=== PATIENT | female | born 1960 | race American Indian/Alaskan Native ===

== ENCOUNTER 2017-01-24 08:42 | Outpatient (CLI) | payer MEDICARE, OTHER ==
--- NOTE | 2017-01-25 08:07 | Cat Scan Report ---
CT ABDOMEN AND PELVIS WITHOUT CONTRAST: 01/24/17 08:42:00 CLINICAL:Abdominal pain. Incisional hernia. TECHNIQUE: Volumetric acquisition and 1.25 millimeter scan reconstructions from the lung bases through the iliac crest. The study was performed with oral contrast. FINDINGS: Abdomen:Clear lung bases. Normal liver, bile ducts and gallbladder. Normal stomach, duodenum, pancreas and spleen. Normal adrenal glands. Small kidneys with nondilated renal collecting systems and ureters. Bilateral renal parenchyma thinning. The right kidney measures 9.3 cm in length and the left kidney measures 9.0 cm in length. Moderate calcification of the abdominal vasculature including the renal vasculature. A left lower quadrant peritoneal dialysis catheter with a loculated collection of fluid in the abdominal wall at the catheter. The fluid collection measures 9.3 x 7.9 x 3.3 cm. There is a very small fat containing umbilical hernia. No other hernia is identified. The small bowel is normal. Mild diverticulosis of the ascending, transverse and descending colon and moderate diverticulosis of the sigmoid colon. No diverticulitis. The appendix is normal. Mild dialysate fluid in the upper abdomen. Pelvis: The urinary bladder a small with a relatively thick wall. A fibroid uterus measures 9.9 x 5.1 x 8.0 cm. A right uterine body submucosal fibroid measures 4.0 x 3.0 cm. Ovaries are normal. Moderate dialysate with in the pelvis. Bone windows demonstrate no suspicious bone lesion. IMPRESSION: 1. A very small fat containing umbilical hernia and no other hernia identified. 2. Diverticulosis but no diverticulitis. 3. Uterine leiomyomata. 4. Dialysate fluid in the left lower quadrant anterior abdominal wall. 5. No incisional hernia identified.
== END 2017-01-24 08:43 | disposition home or self-care (01) ==
LOC: SPVIMAG 08:42
PROVIDERS: ATTEND Surgery
DX: K43.2 Incisional hernia without obstruction or gangrene (principal); K42.9 Umbilical hernia without obstruction or gangrene; K57.30 Diverticulosis of large intestine without perforation or abscess without bleeding; D25.0 Submucous leiomyoma of uterus; I70.0 Atherosclerosis of aorta
CPT/HCPCS: 74176

== ENCOUNTER 2017-11-11 17:53 | Emergency (ER) | payer OTHER, MEDICARE ==
[2017-11-11] MEDS ORDERED: NORMODYNE IV ONE (18:04)
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
[2017-11-11] MEDS ORDERED: APRESOLINE IV ONE ×2 (18:25→20:48)
[2017-11-11 18:36] LABS: Basophils # (Auto) 0.1 K/mm3 (0.0-0.1); Basophils % (Auto) 1.4 % (0.0-1.8); Eosinophils # (Auto) 0.1 K/mm3 (0.0-0.4); Eosinophils % (Auto) 0.9 % (0.0-4.3); Hematocrit 38.9 % (30.3-42.9); Hemoglobin 12.5 gm/dl (10.1-14.3); Lymphocytes # (Auto) 1.1 K/mm3 (1.2-5.4); Lymphocytes % (Auto) 13.1 % (13.4-35.0); Mean Corpuscular HGB Conc 32 % (30-34); Mean Corpuscular Hemoglobin 29 pg (28-32); Mean Corpuscular Volume 88 fl (79-97); Monocytes # (Auto) 0.5 K/mm3 (0.0-0.8); Monocytes % (Auto) 5.9 % (0.0-7.3); Platelet Count 293 K/mm3 (140-440); Red Cell Distribution Width 18.4 % (13.2-15.2)
[2017-11-11 18:44] LABS: INR 1.12 (0.87-1.13)
[2017-11-11 18:45] LABS: Partial Thromboplastin Time 42.2 Sec. (24.2-36.6)
--- NOTE | 2017-11-11 18:51 | Cat Scan Report ---
FINAL REPORT EXAM: CT HEAD/BRAIN WO CON HISTORY: Altered Mental Status TECHNIQUE: Standard unenhanced CT of the head at 5.0 millimeter axial increments. PRIORS: None. FINDINGS: The ventricular system is normal in size and configuration. There is no evidence for parenchymal volume loss. There is no evidence for mass lesion, mass effect, midline shift, acute intracranial hemorrhage, or acute ischemia/ infarction. No evidence for acute skull fracture is seen. No abnormality in the overlying scalp soft tissues is seen. Visualized paranasal sinuses are clear. IMPRESSION: Negative CT of the head. No acute intracranial process noted.
--- NOTE | 2017-11-11 18:52 | XRay Report ---
FINAL REPORT EXAM: XR CHEST 1V AP HISTORY: wheezes TECHNIQUE: AP portable view of the chest PRIORS: None. FINDINGS: Lines, tubes, and devices: N/A Lungs and pleura: Trachea is normal in position. Lungs are clear of infiltrate, pleural effusion, vascular congestion, or pneumothorax. Cardiomediastinal silhouette: Cardiac and mediastinal silhouettes are unremarkable. Other: Bony structures are intact. IMPRESSION: No acute cardiopulmonary process seen.
[2017-11-11 19:01] LABS: Albumin 3.6 g/dL (3.9-5); Calcium 8.8 mg/dL (8.4-10.2)
[2017-11-11 19:30] LABS: Bacteria,Urine 1+ /HPF (Negative); Bilirubin,Urine NEG (Negative); Blood,Urine MOD (Negative); Color,Urine Yellow (Yellow); Mucus,Urine FEW /HPF; Urobilinogen,Urine < 2.0 mg/dL (<2.0)
[2017-11-11 19:33] LABS: Amphetamine Screen,Urine PRESUMPTIVE NEGATIVE; Benzodiazepines Screen,Urine PRESUMPTIVE NEGATIVE; Cannabinoid Screen,Urine PRESUMPTIVE NEGATIVE; Cocaine Screen,Urine PRESUMPTIVE NEGATIVE; Methadone Screen,Urine PRESUMPTIVE NEGATIVE; Opiate Screen,Urine PRESUMPTIVE NEGATIVE
[2017-11-11 20:04] LABS: Chol/HDL Ratio 2.63 %
[2017-11-11] MEDS ORDERED: APRESOLINE ONE (20:44)
[2017-11-11] MEDS ORDERED: ZOFRAN ONE (21:14)
[2017-11-11] MEDS ORDERED: ZOFRAN IV ONE (21:21)
[2017-11-11 22:21] VITALS: BP 147/81
== END 2017-11-11 22:30 | disposition left against medical advice (07) ==
LOC: ED 17:53
DX: E11.649 Type 2 diabetes mellitus with hypoglycemia without coma (principal); I10 Essential (primary) hypertension; R79.89 Other specified abnormal findings of blood chemistry; I25.10 Atherosclerotic heart disease of native coronary artery without angina pectoris; Z95.818 Presence of other cardiac implants and grafts; Z79.899 Other long term (current) drug therapy
CPT/HCPCS: 36415; 70450; 71045; 80053; 80061; 80307; 81001; 82140; 82962; 84484; 85025; 85610; 85730; 87086; 93005; 93010; 96374; 96375; 96376; 99285; G0480; J0360; J2405; 80320

== ENCOUNTER 2019-07-06 16:46 | Inpatient (IN) | payer MEDICARE, OTHER ==
[2019-07-06 19:03] LABS: Basophils # (Auto) 0.1 K/mm3 (0.0-0.1); Basophils % (Auto) 0.8 % (0.0-1.8); Hematocrit 22.2 % (30.3-42.9); Hemoglobin 6.9 gm/dl (10.1-14.3); Lymphocytes # (Auto) 1.5 K/mm3 (1.2-5.4); Mean Corpuscular HGB Conc 31 % (30-34); Mean Corpuscular Volume 80 fl (79-97); Monocytes % (Auto) 10.1 % (0.0-7.3); Platelet Count 281 K/mm3 (140-440); Red Blood Count 2.78 M/mm3 (3.65-5.03)
[2019-07-06 19:05] LABS: Red Cell Distribution Width 20.6 % (13.2-15.2)
[2019-07-06] MEDS ORDERED: DEXTROSE 50% IN WATER (25GM) 50 ML SYRINGE IV ONE (19:05)
--- NOTE | 2019-07-06 19:11 | Emergency Department Report ---
ED General Adult HPI - General Chief complaint: Medical Clearance Stated complaint: AMS Time Seen by Provider: 07/06/19 18:21 Source: EMS Mode of arrival: Stretcher Limitations: Altered Mental Status - History of Present Illness Initial comments: Patient is a 59-year-old female with past medical history of diabetes hypertension and is stage renal disease who is currently on hemodialysis who is presenting with altered mental status. Patient is a resident of [facility] and paramedics were called because the patient seemed altered after dialysis. Paramedics arrived patient blood pressure was 78/34. Patient was unable to give any additional history at that time. During my assessment the patient is alert to her name but when asked where she is and what year it is the patient responded "I don't have any clothes on". Patient is dressed at this time. We've called [facility] and the attendant states that the patient is is normally alert and oriented 3. It is unknown whether the patient has had a fever nausea vomiting diarrhea or cough cold or congestion. Severity scale (0 -10): 0 - Related Data Allergies Allergy/AdvReac Type Severity Reaction Status Date / Time No Known Allergies Allergy Verified 11/11/17 20:46 ED Review of Systems ROS: Stated complaint: AMS Other details as noted in HPI Comment: Unobtainable due to pts medical conditions ED Past Medical Hx - Past Medical History Hx Hypertension: Yes Hx Diabetes: Yes Additional medical history: peritoneal dialysis, CAD - Surgical History Hx Coronary Stent: Yes - Social History Smoking Status: Unknown if ever smoked ED Physical Exam - General Limitations: Altered Mental Status General appearance: alert, in no apparent distress, other (patient is following commands however she does answer questions very oddly and gets off topic very easily) - Head Head exam: Present: atraumatic, normocephalic - Eye Eye exam: Present: normal appearance, PERRL, EOMI - ENT ENT exam: Present: mucous membranes moist - Neck Neck exam: Present: normal inspection - Respiratory Respiratory exam: Present: normal lung sounds bilaterally. Absent: respiratory distress, wheezes, rales, rhonchi - Cardiovascular Cardiovascular Exam: Present: regular rate, normal rhythm, normal heart sounds. Absent: systolic murmur, diastolic murmur, rubs, gallop - GI/Abdominal GI/Abdominal exam: Present: soft, normal bowel sounds. Absent: distended, tenderness, guarding, rebound - Extremities Exam Extremities exam: Present: normal inspection - Back Exam Back exam: Present: normal inspection - Neurological Exam Neurological exam: Present: alert, altered, CN II-XII intact. Absent: motor sensory deficit - Psychiatric Psychiatric exam: Present: normal affect, normal mood - Skin Skin exam: Present: warm, dry, intact, normal color. Absent: rash ED Course Vital Signs 07/06/19 07/06/19 18:12 18:13 Temperature 98.8 F Pulse Rate 70 Respiratory 19 19 Rate Blood Pressure 125/43 [Left] O2 Sat by Pulse 97 97 Oximetry - Reevaluation(s) Reevaluation #1: 07/06/19 19:11 Patient's glucose was 61. At this time the patient will be given an amp of D50 and the patient will be reassessed to see if this improves her mental status. Patient's blood pressure at the time of my assessment is within normal limits Reevaluation #2: 07/06/19 21:19 I spoke with the patient's and he states that he's only seen her in this state of confusion when she has a low blood sugar. Patient original Accu-Chek was 61 and she was given D50 as had no improvement of her systemic symptoms. Patient's states that this is very outside of her baseline. Code stroke has been initiated at this time. CT head will be obtained. 07/06/19 23:59 CT head/brain wo con INDICATION: Stroke symptoms. Difficulty speaking. TECHNIQUE: Routine CT head without contrast. All CT scans at this location are performed using CT dose reduction for ALARA by means of automated exposure control. COMPARISON: None. FINDINGS: BRAIN / INTRACRANIAL CONTENTS: No acute hemorrhage, mass effect, midline shift, or hydrocephalus. No appreciable acute large territorial or lacunar infarct. No chronic infarct or focal atrophy. Normal brain volume and ventricular/sulcal size for age. ORBITS: No significant abnormality of visualized orbits. SINUSES / MASTOIDS: No significant abnormality of visualized sinuses and mastoid air cells. ADDITIONAL FINDINGS: None. IMPRESSION: 1. No acute findings. No appreciable acute infarct. Findings discussed with Dr. Granado at 8:40 PM central time on 07/06/2019. Reevaluation #3: 07/06/19 23:59 CT of the head was within normal limits. Telemetry neurology stated that they did not recommend TPA at this time please see his note. Patient will undergo a CT angiogram of the head and neck. CTA neck without and with intravenous contrast material CLINICAL HISTORY: Altered mental status. Dialysis patient experienced aphasia following dialysis episode. TECHNIQUE: Following acquisition of a timing bolus 0.625 mm thick contiguous axial scans were obtained from aortic arch to the skull base during rapid bolus intravenous contrast infusion. In addition to evaluation of axial source images multiplanar reconstructions were produced and reviewed for this report. Three-dimensional reconstructions were produced utilizing an independent workstation. These were also reviewed for this report. Contrast dose report: Omnipaque 350: 100 mL administered intravenously. FINDINGS: The origin of the brachiocephalic artery was excluded from this study. Origins of the common carotid artery and left subclavian artery are remarkable for the presence of calcified atherosclerotic plaque with no indication of associated stenosis. Right carotid artery: Right common carotid artery has an unremarkable appearance. Evaluation of the carotid bifurcations remarkable for the presence of calcified atherosclerotic plaque but there is no indication of hemodynamically significant stenosis. Cervical portions of the R ICA have a normal appearance. Left carotid artery: No abnormalities are seen along the course of the left common carotid artery. Evaluation of the carotid bifurcation is remarkable for calcified atherosclerotic plaque without evidence of stenosis. Cervical portions of the LICA have an unremarkable appearance. Balanced vertebral arteries are noted. Both vertebral arteries contribute to the basilar artery origin. There is no indication of hemodynamically significant stenosis along the course the vertebral arteries. . The degree of stenosis, if any, is determined utilizing NASCET like criteria. In this case there is no indication of hemodynamically significant stenosis at the carotid bifurcations or elsewhere. Evaluation the visualized portions of the thorax is remarkable for the presence of large bilateral pleural effusions. Correlation with chest radiograph is suggested. A right subclavian multilumen catheter is noted. The catheter tip is not included on this examination. There is no indication of cervical lymphadenopathy. No abnormalities are seen along the course of the airway. Visualized portions of the parotid glands and the submandibular salivary glands have a normal appearance. Thyroid gland has a normal appearance. Evaluation of the cervical spine is remarkable for exam) bridging anterior ost eophyte formation resulting in fusion of the cervical spine from C2 through C7 inclusive. IMPRESSION: 1. Large bilateral pleural effusions. Correlation with chest radiograph is suggested. 2. No indication of hemodynamically significant stenosis at the carotid bifurcations or elsewhere. CTA head with intravenous contrast CLINICAL HISTORY: altered mental status difficulty speaking following renal dialysis. TECHNIQUE: 0.625 mm thick contiguous axial scans were obtained from the skull base to the skull vertex during rapid bolus administration of intravenous contrast material. Multiplanar reconstructions were produced in the coronal and sagittal planes. In addition 3 plane MIP instructions were produced and reviewed for this report. The axial source images and reconstructed images were reviewed for this report. All CT scans at this location are performed using CT dose reduction for ALARA by means of automated exposure control. FINDINGS: Calcified atherosclerotic plaque is present along the course of the cavernous segments of both internal carotid arteries. There is no associated hemodynamically significant stenosis. The supraclinoid segments of the internal carotid arteries have a normal appearance. No abnormalities are seen along the course of the A1 or A2 segments of the anterior cerebral arteries. The M1 segments of both middle cerebral arteries have an unremarkable appearance. Occasional occlusion of the middle cerebral arteries. Sylvian branches of the middle cerebral arteries are symmetrical appearance. No abnormalities seen along the course of the distal vertebral arteries. Codominant vertebral arteries both contribute to the basilar artery origin. There is no evidence of aneurysm or other vascular malformation. IMPRESSION: No indication of large vessel occlusion, significant intracranial stenosis or aneurysm on CTA head. CONTRAST DOSE REPORT: Omnipaque 350: 100 ml administered intravenously. Signer Name: Ko Conklin MD Reevaluation #4: 07/07/19 00:02 Patient is guaiac negative at this time. Since anemia is likely from chronic hemodialysis Reevaluation #5: 07/07/19 00:02 At this time the patient has been here for multiple hours. Her blood pressure stable and her blood glucose is within normal limits. Patient still very lethargic. Patient be admitted to the hospitalist service. ED Medical Decision Making - Lab Data Result diagrams: 07/06/19 18:27 07/06/19 18:27 . Critical care attestation.: If time is entered above; I have spent that time in minutes in the direct care of this critically ill patient, excluding procedure time. ED Disposition Clinical Impression: Acute encephalopathy, Intra-dialytic hypotension Altered mental status Qualifiers: Altered mental status type: somnolence Qualified Code(s): R40.0 - Somnolence Disposition: OP ADMIT IP TO THIS HOSP Is pt being admited?: Yes Does the pt Need Aspirin: No Condition: Stable Time of Disposition: 00:05
--- NOTE | 2019-07-06 21:37 | Consultation ---
History of Present Illness Consult date: 07/06/19 Medications and Allergies Allergies Allergy/AdvReac Type Severity Reaction Status Date / Time No Known Allergies Allergy Verified 11/11/17 20:46 Physical Examination - Vital Signs Vital Signs: Vital Signs Temp Pulse Resp BP Pulse Ox 98.8 F 70 19 125/43 97 07/06/19 18:12 07/06/19 18:12 07/06/19 18:12 07/06/19 18:12 07/06/19 18:12 Results - Laboratory Findings CBC and BMP: 07/06/19 18:27 07/06/19 18:27 Abnormal Lab Findings: Abnormal Labs 07/06/19 07/06/19 07/06/19 18:27 18:27 19:53 RBC 2.78 L Hgb 6.9 L Hct 22.2 L MCH 25 L RDW 20.6 H Mobile % (Auto) 10.1 H Mobile # 1.0 H Seg Neutrophils % 74.1 H Chloride 88.3 L Creatinine 3.0 H Glucose 61 L POC Glucose 157 H Assessment and Plan [facility] Date of Service: 07/06/2019 21:20:49 Impression: RO Acute Ischemic Stroke Comments: Patient is a(n) 59 years old female, with history of stroke, diabetes, hypertension and is end stage renal disease who is currently on hemodialysis, last time known well unclear but >4.5 hours ago prior to dialysis and doesnt seem to have focal deficits despite high NIHSS, not a candidate for IV tPA, will obtain CTA head and neck due to her lethargy even after correction of hypotension and hypoglycemia. etiology could be delayed recovery after hypoglycemia and hypotension, but also such low Blood Pressure can cause watershed infarcts. Mechanism of Stroke: Watershed Infarct Metrics: Last Known Well: Unknown [employer] Notification Time: 07/06/2019 21:20:09 Arrival Time: 07/06/2019 20:45:00 Stamp Time: 07/06/2019 21:20:49 Time First Login Attempt: 07/06/2019 21:25:39 Video Start Time: 07/06/2019 21:25:39 Symptoms: altered mental status NIHSS Start Assessment Time: 07/06/2019 21:31:51 Patient is not a candidate for tPA. Patient was not deemed candidate for tPA thrombolytics because of Last Well Kn own Above 4.5 Hours. Video End Time: 07/06/2019 21:47:37 CT head showed no acute hemorrhage or acute core infarct. CT head was reviewed. Advanced imaging CTA head and neck obtained. Our recommendations are outlined below. Recommendations: Activate Stroke Protocol Admission/Order Set Stroke/Telemetry Floor Neuro Checks Bedside Swallow Eval DVT Prophylaxis IV Fluids, Normal Saline Head of Bed Below 30 Degrees Euglycemia and Avoid Hyperthermia (PRN Acetaminophen) Antiplatelet Therapy Recommended Recommended Scan: MRI Head Without Contrast Lipid Panel to Be Obtained, if Not Done in the Last Three Months Therapies: Physical Therapy, Occupational Therapy, Speech Therapy Assessment When Applicable Dysphaghia Screen: Swallow Evaluation, Bedside NPO Until Swallow Evaluation DVT prophylaxis: SCDs, Pneumatic Compression Disposition: Follow up with Teleneurology Follow up Sign Out: Discussed with Emergency Department Provider History of Present Illness: Patient is a 59 year old Female. Patient was brought by EMS for symptoms of altered mental status Patient is a(n) 59 years old female, with history of stroke, diabetes, hypertension and is end stage renal disease who is currently on hemodialysis who is presenting with altered mental status. Patient is a resident of [facility] and paramedics were called because the patient seemed altered after dialysis. Paramedics arrived patient blood pressure was 78/34. In ED initial blood glucose was 61, was given D50. last time known well is not exactly clear but she went to dialysis more than 4.[address] head showed no acute hemorrhage or acute core infarct. CT head was reviewed. Based on the results of CTA head and neck and (if needed) CTP brain, will determine presence of Large Vessel Occlusion and eligibility for mechanical thrombectomy. Last seen normal was beyond 4.5 hours of presentation. There is no history of hemorrhagic complications or intracranial hemorrhage. There is no history of Recent Anticoagulants. There is no history of recent major surgery. There is no history of recent stroke. Examination: BP(124/26), Blood Glucose(157) 1A: Level of Consciousness - Requires repeated stimulation to arouse + 2 1B: Ask Month and Age - Could Not Answer Either Question Correctly + 2 1C: Blink Eyes & Squeeze Hands - Performs Both Tasks + 0 2: Test Horizontal Extraocular Movements - Normal + 0 3: Test Visual [place] - No Visual Loss + 0 4: Test Facial Palsy (Use Grimace if Obtunded) - Normal symmetry + 0 5A: Test Left Arm Motor Drift - No Drift for 10 Seconds + 0 5B: Test Right Arm Motor Drift - No Drift for 10 Seconds + 0 6A: Test Left Leg Motor Drift - No Effort Against [place] + 3 6B: Test Right Leg Motor Drift - No Effort Against [place] + 3 7: Test Limb Ataxia (FNF/Heel-Pineda) - No Ataxia + 0 8: Test Sensation - Normal; No sensory loss + 0 9: Test Language/Aphasia - Mild-Moderate Aphasia: Some Obvious Changes, Without Significant Limitation + 1 10: Test Dysarthria - Normal + 0 11: Test Extinction/Inattention - No abnormality + 0 NIHSS Score: 11 Patient was informed the Neurology Consult would happen via TeleHealth consult by way of interactive audio and video telecommunications and consented to receiving care in this manner. Due to the immediate potential for life-threatening deterioration due to underlying acute neurologic illness, I spent 35 minutes providing critical care. This time includes time for face to face visit via telemedicine, review of medical records, imaging studies and discussion of findings with providers, the patient and/or family. Dr Rolando Mckeon [facility] Case [id number]
--- NOTE | 2019-07-06 21:45 | Cat Scan Report ---
CT head/brain wo con INDICATION: Stroke symptoms. Difficulty speaking. TECHNIQUE: Routine CT head without contrast. All CT scans at this location are performed using CT dos e reduction for ALARA by means of automated exposure control. COMPARISON: None. FINDINGS: BRAIN / INTRACRANIAL CONTENTS: No acute hemorrhage, mass effect, midline shift, or hydrocephalus. No appreciable acute large territorial or lacunar infarct. No chronic infarct or focal atrophy. Normal b rain volume and ventricular/sulcal size for age. ORBITS: No significant abnormality of visualized orbits. SINUSES / MASTOIDS: No significant abnormality of visualized sinuses and mastoid air cells. ADDITIONAL FINDINGS: None. IMPRESSION: 1. No acute findings. No appreciable acute infarct. Findings discussed with Dr. Granado at 8:40 PM central time on 07/06/2019. Signer Name: Lavelle Valdivia MD Signed: 07/06/2019 9:41 PM Workstation Name: [id number]
[2019-07-06 22:27] LABS: INR 1.62 (0.87-1.13)
[2019-07-06 22:28] LABS: Partial Thromboplastin Time 44.7 Sec. (24.2-36.6)
[2019-07-06 22:33] LABS: Thrombin Time 20.2 Sec. (15.1-19.6)
--- NOTE | 2019-07-06 23:35 | Cat Scan Report ---
CTA neck without and with intravenous contrast material CLINICAL HISTORY: Altered mental status. Dialysis patient experienced aphasia following dialysis episode. TECHNIQUE: Following acquisition of a timing bolus 0.625 mm thick contiguous axial scans were obtained from aort ic arch to the skull base during rapid bolus intravenous contrast infusion. In addition to evaluation of axial source images multiplanar reconstructions were produced and reviewed for this report. Three -dimensional reconstructions were produced utilizing an independent workstation. These were also revi ewed for this report. Contrast dose report: Omnipaque 350: 100 mL administered intravenously. FINDINGS: The origin of the brachiocephalic artery was excluded from this study. Origins of the common carotid artery and left subclavian artery are remarkable for the presence of calcified atherosclerotic plaque with no indication of associated stenosis. Right carotid artery: Right common carotid artery has an unremarkable appearance. Evaluation of the c arotid bifurcations remarkable for the presence of calcified atherosclerotic plaque but there is no i ndication of hemodynamically significant stenosis. Cervical portions of the R ICA have a normal appea maría. Left carotid artery: No abnormalities are seen along the course of the left common carotid artery. Ev aluation of the carotid bifurcation is remarkable for calcified atherosclerotic plaque without eviden ce of stenosis. Cervical portions of the LICA have an unremarkable appearance. Balanced vertebral arteries are noted. Both vertebral arteries contribute to the basilar artery origi n. There is no indication of hemodynamically significant stenosis along the course the vertebral juanita laura. . The degree of stenosis, if any, is determined utilizing NASCET like criteria. In this case there is no indication of hemodynamically significant stenosis at the carotid bifurcations or elsewhere. Evaluation the visualized portions of the thorax is remarkable for the presence of large bilateral pl eural effusions. Correlation with chest radiograph is suggested. A right subclavian multilumen catheter is noted. The catheter tip is not included on this examination . There is no indication of cervical lymphadenopathy. No abnormalities are seen along the course of th e airway. Visualized portions of the parotid glands and the submandibular salivary glands have a norm al appearance. Thyroid gland has a normal appearance. Evaluation of the cervical spine is remarkable for exam) bridging anterior osteophyte formation resul ting in fusion of the cervical spine from C2 through C7 inclusive. IMPRESSION: 1. Large bilateral pleural effusions. Correlation with chest radiograph is suggested. 2. No indication of hemodynamically significant stenosis at the carotid bifurcations or elsewhere. All CT examinations performed at this facility utilize modulated dose reduction, iterative reconstruc tion or weight-based dosing, as appropriate, to obtain a radiation dose which is as low as can reason ably be achieved. Signer Name: Ko Conklin MD Signed: 07/06/2019 11:31 PM Workstation Name: [id number]
--- NOTE | 2019-07-06 23:44 | Cat Scan Report ---
CTA head with intravenous contrast CLINICAL HISTORY: altered mental status difficulty speaking following renal dialysis. TECHNIQUE: 0.625 mm thick contiguous axial scans were obtained from the skull base to the skull vertex during ra pid bolus administration of intravenous contrast material. Multiplanar reconstructions were produced in the coronal and sagittal planes. In addition 3 plane MIP instructions were produced and reviewed f or this report. The axial source images and reconstructed images were reviewed for this report. All CT scans at this location are performed using CT dose reduction for ALARA by means of automated e xposure control. FINDINGS: Calcified atherosclerotic plaque is present along the course of the cavernous segments of both automotive internet sales consultant al carotid arteries. There is no associated hemodynamically significant stenosis. The supraclinoid segments of the internal carotid arteries have a normal appearance. No abnormalities are seen along the course of the A1 or A2 segments of the anterior cerebral arteries. The M1 segment s of both middle cerebral arteries have an unremarkable appearance. Occasional occlusion of the middl e cerebral arteries. Sylvian branches of the middle cerebral arteries are symmetrical appearance. No abnormalities seen along the course of the distal vertebral arteries. Codominant vertebral arterie s both contribute to the basilar artery origin. There is no evidence of aneurysm or other vascular malformation. IMPRESSION: No indication of large vessel occlusion, significant intracranial stenosis or aneurysm on CTA head. CONTRAST DOSE REPORT: Omnipaque 350: 100 ml administered intravenously. Signer Name: Ko Conklin MD Signed: 07/06/2019 11:40 PM Workstation Name: [id number]
--- NOTE | 2019-07-06 23:55 | History and Physical Report ---
History of Present Illness Date of examination: 07/06/19 History of present illness: 59-year-old woman with end-stage renal disease on dialysis, hypertension, diabetes, CAD sent from the shelter for evaluation of altered mental status. She patient became altered after dialysis. Per report of the emergency room physician, EMS reported that the blood pressure was 78 systolically however when the patient arrived in the emergency room, blood pressure is been normal without any intervention. Patient is able to give her name and her medical problems as discussed above, she is not able to add any additional history. Blood sugar in the ER was 61, she was given D50, no change in mental status. Patient is being admitted for altered mental status PAST MEDICAL HISTORY: End-stage renal disease, hypertension, diabetes, coronary artery disease PAST SURGICAL HISTORY: CABG FAMILY HISTORY:Unknown SOCIAL HISTORY: Unknown Medications and Allergies Allergies Allergy/AdvReac Type Severity Reaction Status Date / Time No Known Allergies Allergy Verified 11/11/17 20:46 Home Medications Medication Instructions Recorded Confirmed Last Taken Type Calcitriol [Rocaltrol] 0.5 mcg PO DAILY 07/07/19 07/07/19 Unknown History Calcium Acetate [Phoslo] 667 mg PO QDAY 07/07/19 07/07/19 Unknown History Clopidogrel [Plavix] 75 mg PO QDAY 07/07/19 07/07/19 Unknown History Folic Acid 1 mg PO QDAY 07/07/19 07/07/19 Unknown History Glimepiride [Amaryl] 4 mg PO QDAY 07/07/19 07/07/19 Unknown History NIFEdipine XL [Procardia Xl] 90 mg PO QDAY 07/07/19 07/07/19 Unknown History Omeprazole 40 mg PO QAC 07/07/19 07/07/19 Unknown History Sevelamer Carbonate [Renvela] 800 mg PO QDAY 07/07/19 07/07/19 Unknown History Exam - Physical Exam Narrative exam: General Apperance: The patient sitting in bed no acute distress HEENT: Normocephalic, atraumatic. Pupils equally round and reactive to light, extraocular movement intact, and no sclericterus or JVD or thyromegaly or nodule. Neck supple, no carotid bruit, mucous membranes dry, no exudate or erythema, wound vac in sternum Heart: S1-S2, regular is rhythm Lungs: Clear to auscultation bilaterally, breathing comfortable Abdomen: Positive bowel sounds, soft, tender, nondistended, no organomegaly Extremities: No edema cyanosis clubbing Skin: no rash, nodule, warm and dry Neuro:lethargic - Constitutional Vitals: Temp Pulse Resp BP Pulse Ox 98.8 F 70 19 125/43 97 07/06/19 18:12 07/06/19 18:12 07/06/19 18:13 07/06/19 18:12 07/06/19 18:13 Results - Labs CBC & Chem 7: 07/07/19 15:48 07/06/19 18:27 Labs: Abnormal lab results 07/06/19 07/06/19 07/06/19 Range/Units 18:27 18:27 19:53 RBC 2.78 L (3.65-5.03) M/mm3 Hgb 6.9 L (10.1-14.3) gm/dl Hct 22.2 L (30.3-42.9) % MCH 25 L (28-32) pg RDW 20.6 H (13.2-15.2) % [place] % (Auto) 10.1 H (0.0-7.3) % [place] # 1.0 H (0.0-0.8) K/mm3 Seg Neutrophils % 74.1 H (40.0-70.0) % PT (12.2-14.9) Sec. INR (0.87-1.13) APTT (24.2-36.6) Sec. Thrombin Time (15.1-19.6) Sec. Chloride 88.3 L (98-107) mmol/L Creatinine 3.0 H (0.7-1.2) mg/dL Glucose 61 L (65-100) mg/dL POC Glucose 157 H (70-105) 07/06/19 Range/Units 21:56 RBC (3.65-5.03) M/mm3 Hgb (10.1-14.3) gm/dl Hct (30.3-42.9) % MCH (28-32) pg RDW (13.2-15.2) % [place] % (Auto) (0.0-7.3) % [place] # (0.0-0.8) K/mm3 Seg Neutrophils % (40.0-70.0) % PT 19.0 H (12.2-14.9) Sec. INR 1.62 H (0.87-1.13) APTT 44.7 H (24.2-36.6) Sec. Thrombin Time 20.2 H (15.1-19.6) Sec. Chloride (98-107) mmol/L Creatinine (0.7-1.2) mg/dL Glucose (65-100) mg/dL POC Glucose (70-105) - Imaging and Cardiology CT Scan - head: report reviewed Assessment and Plan CT head neck reviewed Assessment Altered mental status Unclear etiology at this time We will give Narcan, assess mental status Consult neurology, if no improvement after Narcan will order MRI Abdominal pain on physical exam Check CT of the abdomen Also check CT chest, she had moderate pleural effusion reviewed on the CT neck Patient with wide pulse pressure/ pleural effusion, s/p recaent ABBG consult cardiology, case discussed with Dr. Herbert End-stage renal disease Consult renal for dialysis Diabetes Check fingersticks, hold insulin at this time anemia Chronic, can be transfused at dialysis and Addendum CT shows possible abscess in abdomen Started Carmencita Armendariz, consult ID
[2019-07-07] MEDS ORDERED: NALOXONE 0.4 MG/1 ML INJ IV ONE (00:15)
[2019-07-07] MEDS ORDERED: ONDANSETRON 4 MG/2 ML INJ IV PRN (00:24)
[2019-07-07] MEDS ORDERED: ACETAMINOPHEN 325 MG TAB PO PRN (00:24)
[2019-07-07] MEDS ORDERED: DEXTROSE 50% IN WATER (25GM) 50 ML SYRINGE IV PRN (00:28)
[2019-07-07] MEDS ORDERED: PIPERACIL-TAZO 2.25 GM/50 ML 2.25 GM/50 ML BAG IV ONE (00:53)
--- NOTE | 2019-07-07 01:30 | Cat Scan Report ---
CT CHEST, ABDOMEN, AND PELVIS WITHOUT CONTRAST INDICATION: Pleural effusion. Altered mental status. Abdominal pain. TECHNIQUE: Axial CT images were obtained through the chest, abdomen, and pelvis without contrast. All CT scans a t this location are performed using CT dose reduction for ALARA by means of automated exposure contro l. COMPARISON: CT abdomen and pelvis without contrast from 01/24/2017. One view of the chest from 11/11/2017. FINDINGS: HEART: Mildly enlarged without a significant pericardial effusion. THORACIC AORTA: The aorta is normal in caliber and diffusely calcified. Mild atherosclerosis is noted along the great vessels. There is diffuse coronary atherosclerosis with CABG changes. MEDIASTINUM: A right internal jugular vein Vas-Cath terminates in the right atrium. No mass, lymphade nopathy or other significant abnormality. LUNGS: There are large bilateral pleural effusions, right greater than left with associated atelectas is. No pneumothorax or additional significant pulmonary abnormality. LIVER: No significant abnormality. GALLBLADDER: No significant abnormality. BILE DUCTS: No significant abnormality. PANCREAS: No significant abnormality. SPLEEN: No significant abnormality. ADRENALS: No significant abnormality. RIGHT KIDNEY and URETER: Moderate right renal atrophy is noted without an additional significant abno rmality. LEFT KIDNEY and URETER: Moderate left renal atrophy is noted without an additional significant abnorm ality. STOMACH and SMALL BOWEL: No significant abnormality. COLON: No significant abnormality. APPENDIX: No significant abnormality. PERITONEUM: Generalized edema is noted with a fluid collection/abscess located anteriorly along the a bdomen measuring 18.8 x 4.7 cm. A small amount of free fluid is seen along the pelvis. No free air is seen. LYMPH NODES: No significant adenopathy. AORTA and ARTERIES: The aorta is normal in caliber with severe generalized atherosclerosis. URINARY BLADDER: Incompletely distended without a distinct abnormality. REPRODUCTIVE ORGANS: Multiple calcified fibroids are seen within the uterus. No additional significan t abnormality. ADDITIONAL FINDINGS: Anasarca is noted with a lower abdominal wall fluid collection versus abscess me asuring 8.6 x 3.9 cm on image 133 of series 2. SKELETAL SYSTEM: There are degenerative changes throughout the spine and pelvis without an acute abno rmality. IMPRESSION: 1. Large bilateral pleural effusions. 2. Mild cardiomegaly. 3. Intra-abdominal and abdominal wall fluid collections/abscesses as above. 4. Additional findings as above. Signer Name: Tavares Rangel MD Signed: 07/07/2019 1:25 AM Workstation Name: [employer]
[2019-07-07] MEDS ORDERED: VANCOMYCIN/NS 1 GM/250 ML 1 GM/250 ML BAG IV ONE (01:40)
[2019-07-07] MEDS ORDERED: PIPERACIL-TAZO 2.25 GM/50 ML 2.25 GM/50 ML BAG IV SCH (09:00)
[2019-07-07] MEDS ORDERED: SODIUM CHLORIDE 0.9% 500 ML 500 ML ONE (09:47)
[2019-07-07] MEDS ORDERED: ENOXAPARIN 30 MG/0.3 ML INJ SUB-Q SCH (10:00)
--- NOTE | 2019-07-07 11:15 | Consultation ---
History of Present Illness - Reason for Consult Consult date: 07/07/19 abscess Requesting physician: JUAN J WILLOUGHBY - History of Present Illness 59 y.o.femalewith history ESRD now on HD, CAD s/p CABG using BIMA at [facility] on 04/10/19, discharged to SNF on 04/20/19 readmitted to [facility] for sternal wound drainage, dehiscence and sternal osteomyelitis s/p multiple w ashouts/debridements/and sternal wound vac changes. Noted to have an abdominal wall abscess from PD cath and PD catheter associated peritonitis.S/P drainage in the OR 06/06/19; OR culture positive for Burkholderia multivorans. 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 S/P PD catheter removal 05/27/19. Found to have an Abdominal wall abscess during PD catheter removal S/P I&D 05/27/19; operative culture Burkholderia multivorans. Sternal bone culture from 05/20/19 grew B. cepaciaS/P sternal reexploration 06/06/19. S/P I&D on 05/17/19; operative cultures with P. aeruginosa, E. Faecalis (sens to amp and vanco),H. parainfluenzae and Veillonella parvula. S/P repeat I&D 05/20/19; OR culture grew Burkholderia cepacia S/P repeat sternal I&D 06/06/19. Ring-enhancing loculations on follow up CT A/P 06/03/19. Treated with vancomycin for E. faecalis and meropenem for Burkholderia sp inpatient then vanco/Fortaz x 6 week course (end date 07/01/19) with HD. Unfortunately, readmitted on 07/06/2019 due to hypotension after HD and altered mental status. EMS found blood pressure was 78/34. [facility] records reviewed and summarized as above. Patient is not able to provide history due to AMS. In the ED, temp 98.8, HR 70, R 17, BP 125/43, O2 91. WBC 9.8. Hg 6.9. Blood culture 07/06/[address] no [address] shows large 8.6x3.9 cm lower abdominal wall collection and large bilateral pleural effusions. ID consulted for abdominal wall abscess. Review of Systems: unable to obtain Medications and Allergies Allergies Allergy/AdvReac Type Severity Reaction Status Date / Time No Known Allergies Allergy Verified 11/11/17 20:46 Home Medications Medication Instructions Recorded Confirmed Last Taken Type Calcitriol [Rocaltrol] 0.5 mcg PO DAILY 07/07/19 07/07/19 Unknown History Calcium Acetate [Phoslo] 667 mg PO QDAY 07/07/19 07/07/19 Unknown History Clopidogrel [Plavix] 75 mg PO QDAY 07/07/19 07/07/19 Unknown History Folic Acid 1 mg PO QDAY 07/07/19 07/07/19 Unknown History Glimepiride [Amaryl] 4 mg PO QDAY 07/07/19 07/07/19 Unknown History NIFEdipine XL [Procardia Xl] 90 mg PO QDAY 07/07/19 07/07/19 Unknown History Omeprazole 40 mg PO QAC 07/07/19 07/07/19 Unknown History Sevelamer Carbonate [Renvela] 800 mg PO QDAY 07/07/19 07/07/19 Unknown History Active Meds: Active Medications Acetaminophen (Tylenol) 650 mg PO Q4H PRN PRN Reason: Pain MILD(1-3)/Fever >100.5/[place] Dextrose (D50w (25gm) Syringe) 50 ml IV Q30MIN PRN; Protocol PRN Reason: Hypoglycemia Piperacillin Sod/Tazobactam Sod (Zosyn/Ns 2.25 Gm/50ml) 2.25 gm in 50 mls @ 100 mls/hr IV Q8H KHALIDA; Protocol Last Admin: 07/07/19 09:49 Dose: 100 mls/hr Documented by: Ondansetron HCl (Zofran) 4 mg IV Q8H PRN PRN Reason: Nausea And Vomiting Sodium Chloride (Sodium Chloride Flush Syringe 10 Ml) 10 ml IV BID KHALIDA Last Admin: 07/07/19 09:50 Dose: 10 ml Documented by: Sodium Chloride (Sodium Chloride Flush Syringe 10 Ml) 10 ml IV PRN PRN PRN Reason: LINE FLUSH Physical Examination - Physical Exam Narrative exam: General appearance: somnolent intermittently opens eyes in AND on NC o2 Eyes: anicteric sclerae, moist conjunctivae; no lid-lag; PERRLA HENT: Atraumatic; oropharynx limited Lungs: + wound vac with a leak, open VAC there is sternal wound with good granulation tissue. No purulence. Lungs CTA CV: RRR no murmur Abdomen: Soft, LLQ wall induration and tenderness Extremities: no edema, no cyanosis Skin: No rash. Psych: no agitated Neuro: somnolent - Constitutional Vitals: Vital Signs Temp Pulse Resp BP Pulse Ox 98.3 F 76 24 118/25 98 07/07/19 08:00 07/07/19 10:00 07/07/19 08:00 07/07/19 07:45 07/07/19 10:07 Temperature -Last 24 Hours Temperature 98.3 F Temperature 98.3 F Temperature 98.8 F Results - Labs CBC & Chem 7: 07/06/19 18:27 07/06/19 18:27 Labs: Abnormal lab results 07/06/19 07/06/19 07/06/19 Range/Units 18:27 18:27 19:53 RBC 2.78 L (3.65-5.03) M/mm3 Hgb 6.9 L (10.1-14.3) gm/dl Hct 22.2 L (30.3-42.9) % MCH 25 L (28-32) pg RDW 20.6 H (13.2-15.2) % [place] % (Auto) 10.1 H (0.0-7.3) % [place] # 1.0 H (0.0-0.8) K/mm3 Seg Neutrophils % 74.1 H (40.0-70.0) % PT (12.2-14.9) Sec. INR (0.87-1.13) APTT (24.2-36.6) Sec. Thrombin Time (15.1-19.6) Sec. Chloride 88.3 L (98-107) mmol/L Creatinine 3.0 H (0.7-1.2) mg/dL Glucose 61 L (65-100) mg/dL POC Glucose 157 H (70-105) 07/06/19 07/07/19 Range/Units 21:56 08:45 RBC (3.65-5.03) M/mm3 Hgb (10.1-14.3) gm/dl Hct (30.3-42.9) % MCH (28-32) pg RDW (13.2-15.2) % [place] % (Auto) (0.0-7.3) % [place] # (0.0-0.8) K/mm3 Seg Neutrophils % (40.0-70.0) % PT 19.0 H (12.2-14.9) Sec. INR 1.62 H (0.87-1.13) APTT 44.7 H (24.2-36.6) Sec. Thrombin Time 20.2 H (15.1-19.6) Sec. Chloride (98-107) mmol/L Creatinine (0.7-1.2) mg/dL Glucose (65-100) mg/dL POC Glucose 142 H (70-105) Assessment and Plan Cultures: Blood culture 07/06/2019 no growth so far Assessment: 59 y.o.femalewith history ESRD now on HD, CAD s/p CABG on 04/10/19 complicated with sternal wound drainage, dehiscence and sternal osteomyelitis s/p multiple washouts/debridements/and sternal wound vac changes, also recent PD associated peritonitis and abdominal wall abscess treated with vanco/Fortaz x 6 week course (end date 07/01/19), readmitted on 07/06/2019 due to hypotension after HD and altered mental status: 1) Hypotension: resolved. Likley due to severe anemia +/- abdominal wall collection. No evidence of sepsis, no tachycardia, leukocytosis, fever. 2) Abdominal wall collection: New CT shows large 8.6x3.9 cm lower abdominal wall collection ? residual or worsening abdominal wall abscess from recent PD infection. 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 PD catheter removal S/P I&D 05/27/19. OR culture Burkholderia multivoran. 3) Recent sternal wound dehiscence and osteomyelitis: improved, no infection noted; S/P Initial I&D on 05/17/19; operative cultures with P. aeruginosa, E. Faecalis (sens to amp and vanco),H. parainfluenzae and Veillonella parvula. S/P repeat I&D 05/20/19; OR culture grew Burkholderia cepacia S/P repeat sternal I&D 06/06/19. Sternal bone culture from 05/20/19 grew B. cepaciaS/P sternal reexploration 06/06/19. 4) Bilateral large pleural effusions:? Recommendations: f/u blood cultures IR consult for abdominal wall collection drainage, send specimen for culture Pulmonary eval for gertrudis large pleural effusions stop vancomycin and zosyn start renally djusted meropenem to cover possible MDR Burkholderia and Enterococcus faecalis Will follow. Shelly Calvert MD Infectious Diseases [employer] Machine Operator [facility], [place] [facility] M [phone] O [phone]
[2019-07-07] MEDS ORDERED: SODIUM CHLORIDE 0.9% 1000 ML 1,000 ML ONE (11:56)
--- NOTE | 2019-07-07 12:18 | Consultation ---
History of Present Illness Consult date: 07/07/19 Consult reason: hypotension History of present illness: 59 yo female presented to [facility] after developing altered mental status and hypotension with a wide puls pressure while undergoing hemodiaylsis for ckd. she is approx 2 mo s/p cabg complicated by sternal wound infection/dehiscence as well as abd abscesses s/p peritoneal dialysis. no chest pain or sob. no palp or syncope. bp has stabilized. inf disease and neurol have been consulted she has a past hx of dm and htn Past History Past Medical History: CAD, ESRD Past Surgical History: CABG Social history: other (unknown) Family history: other (unknown) Medications and Allergies Allergies Allergy/AdvReac Type Severity Reaction Status Date / Time No Known Allergies Allergy Verified 11/11/17 20:46 Home Medications Medication Instructions Recorded Confirmed Last Taken Type Calcitriol [Rocaltrol] 0.5 mcg PO DAILY 07/07/19 07/07/19 Unknown History Calcium Acetate [Phoslo] 667 mg PO QDAY 07/07/19 07/07/19 Unknown History Clopidogrel [Plavix] 75 mg PO QDAY 07/07/19 07/07/19 Unknown History Folic Acid 1 mg PO QDAY 07/07/19 07/07/19 Unknown History Glimepiride [Amaryl] 4 mg PO QDAY 07/07/19 07/07/19 Unknown History NIFEdipine XL [Procardia Xl] 90 mg PO QDAY 07/07/19 07/07/19 Unknown History Omeprazole 40 mg PO QAC 07/07/19 07/07/19 Unknown History Sevelamer Carbonate [Renvela] 800 mg PO QDAY 07/07/19 07/07/19 Unknown History Active Meds: Active Medications Acetaminophen (Tylenol) 650 mg PO Q4H PRN PRN Reason: Pain MILD(1-3)/Fever >100.5/[place] Dextrose (D50w (25gm) Syringe) 50 ml IV Q30MIN PRN; Protocol PRN Reason: Hypoglycemia Piperacillin Sod/Tazobactam Sod (Zosyn/Ns 2.25 Gm/50ml) 2.25 gm in 50 mls @ 100 mls/hr IV Q8H KHALIDA; Protocol Last Admin: 07/07/19 09:49 Dose: 100 mls/hr Documented by: Ondansetron HCl (Zofran) 4 mg IV Q8H PRN PRN Reason: Nausea And Vomiting Sodium Chloride (Sodium Chloride Flush Syringe 10 Ml) 10 ml IV BID KHALIDA Last Admin: 07/07/19 09:50 Dose: 10 ml Documented by: Sodium Chloride (Sodium Chloride Flush Syringe 10 Ml) 10 ml IV PRN PRN PRN Reason: LINE FLUSH Review of Systems ROS unobtainable: due to mental status (lethargic) Physical Examination Vital Signs Pulse Ox 91 07/06/19 17:42 General appearance: no acute distress HEENT: Positive: Normocephaly Neck: Positive: neck supple, Carotid Upstroke (normal). Negative: JVD/HJR, Bruit Cardiac: Positive: Reg Rate and Rhythm Lungs: Positive: clear to auscultation Neuro: Positive: Other (defer to neurol) Abdomen: Positive: Soft. Negative: Tender Skin: Negative: Rash Musculoskeletal: other (not examined) Extremities: Present: Other (pedal pulses 1-2+). Absent: edema Results 07/06/19 18:27 07/06/19 18:27 Coagulation 07/06/19 Range/Units 21:56 PT 19.0 H (12.2-14.9) Sec. INR 1.62 H (0.87-1.13) APTT 44.7 H (24.2-36.6) Sec. CBC 07/06/19 Range/Units 18:27 WBC 9.8 (4.5-11.0) K/mm3 RBC 2.78 L (3.65-5.03) M/mm3 Hgb 6.9 L (10.1-14.3) gm/dl Hct 22.2 L (30.3-42.9) % Plt Count 281 (140-440) K/mm3 Lymph # 1.5 (1.2-5.4) K/mm3 [place] # 1.0 H (0.0-0.8) K/mm3 Eos # 0.0 (0.0-0.4) K/mm3 Baso # 0.1 (0.0-0.1) K/mm3 Comprehensive Metabolic Panel 07/06/19 Range/Units 18:27 Sodium 139 (137-145) mmol/L Potassium 4.0 (3.6-5.0) mmol/L Chloride 88.3 L (98-107) mmol/L Carbon Dioxide 30 (22-30) mmol/L BUN 14 (7-17) mg/dL Creatinine 3.0 H (0.7-1.2) mg/dL Glucose 61 L (65-100) mg/dL Calcium 9.0 (8.4-10.2) mg/dL Assessment and Plan cad s/p cabg esrd formerly pd now hd s/p sternal wound inf s/p abd abscess hypotension with narrow pulse pressure--improved--?etiol--anemia,vol depletion,inf,?aortic regurgitation plan: current mgt. per id and neurol. obtain echo will follow
[2019-07-07] MEDS ORDERED: MEROPENEM/NS 500 MG/50 ML 500 MG/50 ML BAG IV SCH (13:00)
--- NOTE | 2019-07-07 15:33 | Progress Note ---
Assessment and Plan Assessment and plan: Patient is a 59 woman with a history of ESRD on HD, hypertension, DM type 2, CAD s/p using BIMA at [facility] on 04/10/19 discharged to SNF on 04/20/19 but readmitted to [facility] for sternal wound drainage, dehiscence and sternal osteomyelitis s/p multiple washouts/debridements s/p sternal wound vac changes who presents to [facility] ED due to hypotension and altered mental status after Hemodialysis. EMS found blood pressure was 78/34. * In the ED, temp 98.8, HR 70, R 17, BP 125/43, O2 91. WBC 9.8. Hg 6.9. Blood culture 07/06/[address] no growth [address]. [address] shows large 8.6x3.9 cm lower abdominal wall collection and large bilateral pleural effusions. ID consulted for abdominal wall abscess. * CT abd/pelvis and chest w/o contrast IMPRESSION: 1. Large bilateral pleural effusions. 2. Mild cardiomegaly. 3. Intra-abdominal and abdominal wall fluid collections/abscesses as above. 4. Additional findings as above. Altered mental status, acute metabolic encephalopathy Unclear etiology at this time Consult neurology once available Abdominal pain on physical exam Check CT of the abdomen Also check CT chest, she had moderate pleural effusion reviewed on the CT neck Patient with wide pulse pressure/ pleural effusion, s/p recent CABG consult cardiology, case discussed with Dr. Herbert End-stage renal disease Consult renal for dialysis Diabetes Check fingersticks, hold insulin at this time anemia Chronic, can be transfused at dialysis and Addendum CT shows possible abscess in abdomen Started Carmencita Armendariz, consult ID History Interval history: Patient was seen and examined. Follow-up on current diagnosis of AMS. No overnight events reported to me. Patient doesn't talk to me. Imaging, nursing note, chart, labs and old chart reviewed. Discussed with patient. Hospitalist Physical - Physical exam Narrative exam: Gen: ill appearing, NAD, Awake, Alert, Orientated x 1 HEENT: NCAT, EOMI, PERRL, OP Clear Neck: supple, no adenopathy, no thyromegaly, no JVD CVS/Heart: RRR, normal S1S2, pulses present bilaterally Chest/Lungs: CTA B, Symmetrical chest expansion, good air entry bilaterally GI/Abdomen: soft, NTND, good bowel sounds, no guarding or rebound /Bladder: no suprapubic tenderness, no CVA or paraspinal tenderness Extermity/Skin: sternal wound vac in place MSK: FROM x 4 Neuro: CN 2-12 grossly intact, no new focal deficits Psych: calm - Constitutional Vitals: Temp Pulse Resp BP Pulse Ox 98.4 F 76 20 118/25 97 07/07/19 12:00 07/07/19 10:00 07/07/19 12:00 07/07/19 07:45 07/07/19 12:00 General appearance: Present: no acute distress Results - Labs CBC & Chem 7: 07/06/19 18:27 07/06/19 18:27 Labs: Laboratory Last Values WBC 9.8 K/mm3 (4.5-11.0) 07/06/19 18: RBC 2.78 M/mm3 (3.65-5.03) L 07/06/19 18:27 Hgb 6.9 gm/dl (10.1-14.3) L 07/06/19 18:27 Hct 22.2 % (30.3-42.9) L 07/06/19 18:27 MCV 80 fl (79-97) 07/06/19 18:27 MCH 25 pg (28-32) L 07/06/19 18:27 MCHC 31 % (30-34) 07/06/19 18:27 RDW 20.6 % (13.2-15.2) H 07/06/19 18:27 Plt Count 281 K/mm3 (140-440) 07/06/19 18:27 Lymph % (Auto) 15.0 % (13.4-35.0) 07/06/19 18:27 [place] % (Auto) 10.1 % (0.0-7.3) H 07/06/19 18:27 Eos % (Auto) 0.0 % (0.0-4.3) 07/06/19 18:27 Baso % (Auto) 0.8 % (0.0-1.8) 07/06/19 18:27 Lymph # 1.5 K/mm3 (1.2-5.4) 07/06/19 18:27 [place] # 1.0 K/mm3 (0.0-0.8) H 07/06/19 18:27 Eos # 0.0 K/mm3 (0.0-0.4) 07/06/19 18:27 Baso # 0.1 K/mm3 (0.0-0.1) 07/06/19 18:27 Seg Neutrophils % 74.1 % (40.0-70.0) H 07/06/19 18:27 Seg Neutrophils # 7.2 K/mm3 (1.8-7.7) 07/06/19 18:27 PT 19.0 Sec. (12.2-14.9) H 07/06/19 21:56 INR 1.62 (0.87-1.13) H 07/06/19 21:56 APTT 44.7 Sec. (24.2-36.6) H 07/06/19 21:56 Thrombin Time 20.2 Sec. (15.1-19.6) H 07/06/19 21:56 Sodium 139 mmol/L (137-145) 07/06/19 18:27 Potassium 4.0 mmol/L (3.6-5.0) 07/06/19 18:27 Chloride 88.3 mmol/L (98-107) L 07/06/19 18:27 Carbon Dioxide 30 mmol/L (22-30) 07/06/19 18:27 Anion Gap 25 mmol/L 07/06/19 18:27 BUN 14 mg/dL (7-17) 07/06/19 18:27 Creatinine 3.0 mg/dL (0.7-1.2) H 07/06/19 18:27 Estimated GFR 19 ml/min 07/06/19 18:27 BUN/Creatinine Ratio 5 % 07/06/19 18:27 Glucose 61 mg/dL (65-100) L 07/06/19 18:27 POC Glucose 150 (70-105) H 07/07/19 11:54 Calcium 9.0 mg/dL (8.4-10.2) 07/06/19 18:27 Active Medications - Current Medications Current Medications: Generic Name Dose Route Start Last Admin Trade Name Freq PRN Reason Stop Dose Admin Acetaminophen 650 mg 07/07/19 00:24 Tylenol PO Q4H PRN Pain MILD(1-3)/Fever >100.5/[place] Dextrose 50 ml 07/07/19 00:28 D50w (25gm) Syringe IV Q30MIN PRN Hypoglycemia Protocol Meropenem 500 mg in 50 mls @ 50 mls/hr 07/07/19 13:00 Merrem/Ns 500 Mg/50 Ml IV Q24H KHALIDA Ondansetron HCl 4 mg 07/07/19 00:24 Zofran IV Q8H PRN Nausea And Vomiting Sodium Chloride 10 ml 07/07/19 10:00 07/07/19 09:50 Sodium Chloride Flush Syringe 10 Ml IV 10 ml BID KHALIDA Administration Sodium Chloride 10 ml 07/07/19 00:24 Sodium Chloride Flush Syringe 10 Ml IV PRN PRN LINE FLUSH
--- NOTE | 2019-07-07 16:11 | Consultation ---
History of Present Illness - Reason for Consult Consult date: 07/07/19 end stage renal disease - History of Present Illness Mrs. Knight is a 59yo with ESRD on HD who presented to the ED from outpatient dialysis clinic (?[facility] where she follows w/ Dr. Tyson) via EMS. Patient was reportedly hypotensive w/ change in mental status. Paramedics arrived patient's blood pressure was 78/34. She is s/p CABG on Apr 10 2019 and was readmitted on May 16 w/ sternal wound dehiscence. During this hospitalization, she required multiple washouts/debridements/and sternal wound vac changes. She was also diagnosed with an abdominal wall abscess. PD catheter associated peritonitis was diagnosed. PD cahteter was removed and patient was transitioned to HD via permcat. She was discharged to inpatient rehab/home on Jun 13. . Past History Past Medical History: atrial fib, CAD (s/p CABG w/ post op sternal wound infection/sternal osteomyelitis), diabetes (type II DM), ESRD, hypertension, other (Hx of abdominal wall abscess s/p I&D; hx of catheter associated peritonitis s/p PD catheter removal) Past Surgical History: CABG Social history: Family history: no significant family history Medications and Allergies Allergies Allergy/AdvReac Type Severity Reaction Status Date / Time No Known Allergies Allergy Verified 11/11/17 20:46 Home Medications Medication Instructions Recorded Confirmed Last Taken Type Calcitriol [Rocaltrol] 0.5 mcg PO DAILY 07/07/19 07/07/19 Unknown History Calcium Acetate [Phoslo] 667 mg PO QDAY 07/07/19 07/07/19 Unknown History Clopidogrel [Plavix] 75 mg PO QDAY 07/07/19 07/07/19 Unknown History Folic Acid 1 mg PO QDAY 07/07/19 07/07/19 Unknown History Glimepiride [Amaryl] 4 mg PO QDAY 07/07/19 07/07/19 Unknown History NIFEdipine XL [Procardia Xl] 90 mg PO QDAY 07/07/19 07/07/19 Unknown History Omeprazole 40 mg PO QAC 07/07/19 07/07/19 Unknown History Sevelamer Carbonate [Renvela] 800 mg PO QDAY 07/07/19 07/07/19 Unknown History Active Meds: Active Medications Acetaminophen (Tylenol) 650 mg PO Q4H PRN PRN Reason: Pain MILD(1-3)/Fever >100.5/PALUMBO Dextrose (D50w (25gm) Syringe) 50 ml IV Q30MIN PRN; Protocol PRN Reason: Hypoglycemia Meropenem (Merrem/Ns 500 Mg/50 Ml) 500 mg in 50 mls @ 50 mls/hr IV Q24H KHALIDA Ondansetron HCl (Zofran) 4 mg IV Q8H PRN PRN Reason: Nausea And Vomiting Sodium Chloride (Sodium Chloride Flush Syringe 10 Ml) 10 ml IV BID KHALIDA Last Admin: 07/07/19 09:50 Dose: 10 ml Documented by: Sodium Chloride (Sodium Chloride Flush Syringe 10 Ml) 10 ml IV PRN PRN PRN Reason: LINE FLUSH Review of Systems ROS unobtainable: due to mental status Exam - Vital Signs Vital signs: Vital Signs Pulse Ox 91 07/06/19 17:42 - General Appearance General appearance: well-developed, well-nourished, frail EENT: ATNC Respiratory: Clear to Ascultation Heart: regular, S1S2 Gastrointestinal: Present: normal. Absent: tenderness, distended Integumentary: no rash, warm and dry Neurologic: other (somnolent) Musculoskeletal: Present: other (no edema) Results - Lab Results 07/07/19 15:48 07/06/19 18:27 Most recent lab results Calcium 9.0 mg/dL (8.4-10.2) 07/06/19 18:27 Assessment and Plan Impression * End stage renal disease on HD TTS (Dr. Kiran Tyson) * Abdominal wall abscess --CT Abd/Pelvis w/ contrast (Jul 07): generalized edema is noted w/ fluid collection/abscess located anteriorky along the abdomen measuring 18.8cmx4.7cm --Hx of Abd wall abscess s/p I&D (May 2019 at [facility]) * Hypotension * Encephalopathy * Anemia secondary to ESRD vs other * Pleural effusion * Hx of Sternal Wound infection/osteomyelitis * Paroxymal atrial fibrillation Plan: * Hemodialysis tomorrow (patient is s/p CT with contrast today) - UF as tolerated given hypotension at outpatient clinic * Abx per ID * Blood cx pending * Hb<7 - transfuse pRBC per primary team * Epogen TIW prn * Dose medications for renal function * AM labs
[2019-07-07 16:24] LABS: Hematocrit 20.5 % (30.3-42.9); Hemoglobin 6.3 gm/dl (10.1-14.3); Mean Corpuscular HGB Conc 31 % (30-34); Mean Corpuscular Volume 79 fl (79-97); Platelet Count 262 K/mm3 (140-440)
[2019-07-07 16:30] LABS: Red Cell Distribution Width 20.3 % (13.2-15.2)
[2019-07-08] MEDS ORDERED: EPOETIN ALFA 10,000 UNIT/1 ML INJ IV PRN (00:01)
[2019-07-08 06:03] LABS: Basophils # (Auto) 0.1 K/mm3 (0.0-0.1); Basophils % (Auto) 1.1 % (0.0-1.8); Eosinophils % (Auto) 0.4 % (0.0-4.3); Hematocrit 20.1 % (30.3-42.9); Hemoglobin 6.3 gm/dl (10.1-14.3); Lymphocytes # (Auto) 1.2 K/mm3 (1.2-5.4); Lymphocytes % (Auto) 12.4 % (13.4-35.0); Mean Corpuscular HGB Conc 32 % (30-34); Mean Corpuscular Volume 79 fl (79-97); Monocytes # (Auto) 1.3 K/mm3 (0.0-0.8); Platelet Count 223 K/mm3 (140-440); Red Blood Count 2.53 M/mm3 (3.65-5.03)
[2019-07-08 06:04] LABS: Red Cell Distribution Width 20.4 % (13.2-15.2)
[2019-07-08 06:28] LABS: Calcium 8.8 mg/dL (8.4-10.2)
[2019-07-08] MEDS ORDERED: SODIUM CHLORIDE 0.9% 500 ML 500 ML IV NR ×2 (08:07→09:00)
--- NOTE | 2019-07-08 08:19 | Progress Note ---
Assessment and Plan Assessment and plan: Patient is a 59 woman with a history of ESRD on HD, hypertension, DM type 2, CAD s/p using BIMA at [facility] on 04/10/19 discharged to SNF on 04/20/19 but readmitted to [facility] 05/16/19 for sternal wound drainage, dehiscence and sternal osteomyelitis s/p multiple washouts/debridements s/p sternal wound vac changes who presents to [facility] ED due to hypotension and altered mental status after Hemodialysis. EMS found blood pressure was 78/34. * In the ED, temp 98.8, HR 70, R 17, BP 125/43, O2 91. WBC 9.8. Hg 6.9. Blood culture 07/06/[address] no growth so far. CT shows large 8.6x3.9 cm lower abdominal wall collection and large bilateral pleural effusions.. * CT abd/pelvis and chest w/o contrast IMPRESSION: 1. Large bilateral pleural effusions. 2. Mild cardiomegaly. 3. Intra-abdominal and abdominal wall fluid collections/abscesses as above. 4. Additional findings as above. Altered mental status suspected acute metabolic encephalopathy Unclear etiology at this time Consulted neurology UA uncollected ?HD/eSRD/anuric related, get bladder scan MRI brain pending Intra-abdominal and abdominal wall fluid collections/abscesses Started ZobassemnCarmencita, consulted ID consulted General surgeonn to evaluate abd wall fluid collection, abscess vs blood vs other Acute on chronic anemia follow up FOBT give 1 unit of PRBC hgb worse today, give 1 u nit of PRBC followed by laslouise, Patient with wide pulse pressure/ pleural effusion, s/p recent CABG consulted cardiology, End-stage renal disease Consulted renal for dialysis Diabetes mellitus type 2 Check fingersticks, SSI moderate malnutrition, poa: consult Optician DVT ppx scd only due to the anemia History Interval history: Patient was seen and examined. Follow-up on current diagnosis of AMS. No overnight events reported to me. Patient doesn't talk to me. Imaging, nursing note, chart, labs and old chart reviewed. Discussed with patient. Hospitalist Physical - Physical exam Narrative exam: Gen: ill appearing, NAD, Awake, Alert, Orientated x 1 HEENT: NCAT, EOMI, PERRL, OP Clear Neck: supple, no adenopathy, no thyromegaly, no JVD CVS/Heart: RRR, normal S1S2, pulses present bilaterally Chest/Lungs: diminshed with bibasilar crackles, Symmetrical chest expansion, go od air entry bilaterally GI/Abdomen: soft, NTND, good bowel sounds, no guarding or rebound /Bladder: no suprapubic tenderness, no CVA or paraspinal tenderness Extermity/Skin: sternal wound vac in place MSK: FROM x 4 Neuro: CN 2-12 grossly intact, no new focal deficits Psych: calm - Constitutional Vitals: Temp Pulse Resp BP Pulse Ox 98.6 F 74 16 127/34 100 07/08/19 04:53 07/08/19 04:53 07/08/19 04:53 07/08/19 04:53 07/08/19 04:53 General appearance: Present: no acute distress Results - Labs CBC & Chem 7: 07/08/19 05:28 07/08/19 05:28 Labs: Laboratory Last Values WBC 9.4 K/mm3 (4.5-11.0) 07/08/19 05:28 RBC 2.53 M/mm3 (3.65-5.03) L 07/08/19 05:28 Hgb 6.3 gm/dl (10.1-14.3) L 07/08/19 05:28 Hct 20.1 % (30.3-42.9) L 07/08/19 05:28 MCV 79 fl (79-97) 07/08/19 05:28 MCH 25 pg (28-32) L 07/08/19 05:28 MCHC 32 % (30-34) 07/08/19 05:28 RDW 20.4 % (13.2-15.2) H 07/08/19 05:28 Plt Count 223 K/mm3 (140-440) 07/08/19 05:28 Lymph % (Auto) 12.4 % (13.4-35.0) L 07/08/19 05:28 Shannon % (Auto) 14.0 % (0.0-7.3) H 07/08/19 05:28 Eos % (Auto) 0.4 % (0.0-4.3) 07/08/19 05:28 Baso % (Auto) 1.1 % (0.0-1.8) 07/08/19 05:28 Lymph # 1.2 K/mm3 (1.2-5.4) 07/08/19 05:28 Shannon # 1.3 K/mm3 (0.0-0.8) H 07/08/19 05:28 Eos # 0.0 K/mm3 (0.0-0.4) 07/08/19 05:28 Baso # 0.1 K/mm3 (0.0-0.1) 07/08/19 05:28 Seg Neutrophils % 72.1 % (40.0-70.0) H 07/08/19 05:28 Seg Neutrophils # 6.8 K/mm3 (1.8-7.7) 07/08/19 05:28 PT 19.0 Sec. (12.2-14.9) H 07/06/19 21:56 INR 1.62 (0.87-1.13) H 07/06/19 21:56 APTT 44.7 Sec. (24.2-36.6) H 07/06/19 21:56 Thrombin Time 20.2 Sec. (15.1-19.6) H 07/06/19 21:56 Sodium 139 mmol/L (137-145) 07/08/19 05:28 Potassium 3.4 mmol/L (3.6-5.0) L 07/08/19 05:28 Chloride 90.4 mmol/L (98-107) L 07/08/19 05:28 Carbon Dioxide 34 mmol/L (22-30) H 07/08/19 05:28 Anion Gap 18 mmol/L 07/08/19 05:28 BUN 27 mg/dL (7-17) H 07/08/19 05:28 Creatinine 4.3 mg/dL (0.7-1.2) H 07/08/19 05:28 Estimated GFR 13 ml/min 07/08/19 05:28 BUN/Creatinine Ratio 6 % 07/08/19 05:28 Glucose 123 mg/dL (65-100) H 07/08/19 05:28 POC Glucose 121 (70-105) H 07/08/19 06:00 Calcium 8.8 mg/dL (8.4-10.2) 07/08/19 05:28 Active Medications - Current Medications Current Medications: Generic Name Dose Route Start Last Admin Trade Name Freq PRN Reason Stop Dose Admin Acetaminophen 650 mg 07/07/19 00:24 Tylenol PO Q4H PRN Pain MILD(1-3)/Fever >100.5/PALUMBO Dextrose 50 ml 07/07/19 00:28 D50w (25gm) Syringe IV Q30MIN PRN Hypoglycemia Protocol Epoetin Roberto 10,000 unit 07/08/19 00:01 Procrit IV FRANKI PRN hemodialysis Furosemide 40 mg 07/08/19 09:00 Lasix IV 07/09/19 08:59 ONCE NR Meropenem 500 mg in 50 mls @ 50 mls/hr 07/07/19 13:00 07/07/19 16:15 Merrem/Ns 500 Mg/50 Ml IV 50 mls/hr Q24H KHALIDA Administration Sodium Chloride 500 mls @ 0 mls/hr 07/08/19 09:00 Nacl 0.9% 500 Ml IV 07/09/19 08:59 ONCE NR As Directed Ondansetron HCl 4 mg 07/07/19 00:24 Zofran IV Q8H PRN Nausea And Vomiting Sodium Chloride 10 ml 07/07/19 10:00 07/07/19 22:00 Sodium Chloride Flush Syringe 10 Ml IV 10 ml BID KHALIDA Administration Sodium Chloride 10 ml 07/07/19 00:24 Sodium Chloride Flush Syringe 10 Ml IV PRN PRN LINE FLUSH
[2019-07-08] MEDS ORDERED: SODIUM CHLORIDE 0.9% 100 ML IV PRN (09:00)
[2019-07-08] MEDS ORDERED: FUROSEMIDE 40 MG/4 ML INJ IV NR (09:00)
--- NOTE | 2019-07-08 10:51 | Consultation ---
History of Present Illness Consult date: 07/08/19 Chief complaint: abdominal fluid collections - History of present illness History of present illness: 59 yo F with hx ESRD on HD, CAD s/p CABG in Mar 2019 at [facility]. Patient has had a complex post op course. She was readmitted to [facility] for sternal wound dehiscence 10 days after surgery. She was on peritone al dialysis at the time and developed peritonitis 2/2 PD cathter. Paracentesis was performed April 2019 and cultures positive for Burkholderia. The patient underwent removal of PD catheter and drainage of associated abscess on 05/27/10. She also underwent debridement of sternal wound which also had positive cultures. Follow up CT on 06/03/19 showed ring enhancing loculations which were treated with abx. All history is obtained from chart Patient presented to [facility] with AMS and hypotension after dialysis. CT scan A/P shows a large fluid collection in the abdomen and also an abdominal wall sekou ection. Surgery is consulted for evaluation. Patient is afebrile. She c/o headache today. Not very communicative otherwise. Past History Past Medical History: atrial fib, CAD (s/p CABG w/ post op sternal wound infection/sternal osteomyelitis), diabetes (type II DM), ESRD, hypertension, other (Hx of abdominal wall abscess s/p I&D; hx of catheter associated pe ritonitis s/p PD catheter removal) Past Surgical History: CABG, Other (PD catheter s/p removal, Abdominal abscess washout, sternal wound dehiscence debridement) Social history: Family history: no significant family history Medications and Allergies Allergies Allergy/AdvReac Type Severity Reaction Status Date / Time No Known Allergies Allergy Verified 11/11/17 20:46 Home Medications Medication Instructions Recorded Confirmed Last Taken Type Calcitriol [Rocaltrol] 0.5 mcg PO DAILY 07/07/19 07/07/19 Unknown History Calcium Acetate [Phoslo] 667 mg PO QDAY 07/07/19 07/07/19 Unknown History Clopidogrel [Plavix] 75 mg PO QDAY 07/07/19 07/07/19 Unknown History Folic Acid 1 mg PO QDAY 07/07/19 07/07/19 Unknown History Glimepiride [Amaryl] 4 mg PO QDAY 07/07/19 07/07/19 Unknown History NIFEdipine XL [Procardia Xl] 90 mg PO QDAY 07/07/19 07/07/19 Unknown History Omeprazole 40 mg PO QAC 07/07/19 07/07/19 Unknown History Sevelamer Carbonate [Renvela] 800 mg PO QDAY 07/07/19 07/07/19 Unknown History Active Meds: Active Medications Acetaminophen (Tylenol) 650 mg PO Q4H PRN PRN Reason: Pain MILD(1-3)/Fever >100.5/PALUMBO Dextrose (D50w (25gm) Syringe) 50 ml IV Q30MIN PRN; Protocol PRN Reason: Hypoglycemia Epoetin Roberto (Procrit) 10,000 unit IV FRANKI PRN PRN Reason: hemodialysis Furosemide (Lasix) 40 mg IV ONCE NR Stop: 07/09/19 08:59 Meropenem (Merrem/Ns 500 Mg/50 Ml) 500 mg in 50 mls @ 50 mls/hr IV Q24H [facility] Last Admin: 07/07/19 16:15 Dose: 50 mls/hr Documented by: Sodium Chloride (Nacl 0.9% 500 Ml) 500 mls @ 0 mls/hr IV ONCE NR Stop: 07/09/19 08:59 Sodium Chloride (Nacl 0.9%) 100 mls @ 999 mls/hr IV FRANKI PRN PRN Reason: Hypotension Ondansetron HCl (Zofran) 4 mg IV Q8H PRN PRN Reason: Nausea And Vomiting Sodium Chloride (Sodium Chloride Flush Syringe 10 Ml) 10 ml IV BID [facility] Last Admin: 07/07/19 22:00 Dose: 10 ml Documented by: Sodium Chloride (Sodium Chloride Flush Syringe 10 Ml) 10 ml IV PRN PRN PRN Reason: LINE FLUSH Review of Systems ROS unobtainable: due to mental status Exam Vital Signs Pulse Ox 91 07/06/19 17:42 Narrative exam: Gen: Awake and alert. NAD. Oriented x2 ENT: no scleral icterus CV: S1, S2+. Sternal dressing c/d/i Resp: even and unlabored Abd: soft, NT, ND. 8 cm fluctuant area in the lower abdomen without erythema, induration. No TTP. NO r/r/g Ext: no c/c/e Results - Labs 07/08/19 05:28 07/08/19 05:28 Abnormal lab results 1207/07/19 07/07/19 Range/Units 21:16 11:54 15:48 RBC 2.60 L (3.65-5.03) M/mm3 Hgb 6.3 L (10.1-14.3) gm/dl Hct 20.5 L (30.3-42.9) % MCH 24 L (28-32) pg RDW 20.3 H (13.2-15.2) % Lymph % (Auto) (13.4-35.0) % Page % (Auto) (0.0-7.3) % Page # (0.0-0.8) K/mm3 Seg Neutrophils % (40.0-70.0) % Potassium (3.6-5.0) mmol/L Chloride (98-107) mmol/L Carbon Dioxide (22-30) mmol/L BUN (7-17) mg/dL Creatinine (0.7-1.2) mg/dL Glucose (65-100) mg/dL POC Glucose 115 H 150 H (70-105) 07/07/19 07/07/19 07/08/19 Range/Units 18:22 23:52 05:28 RBC 2.53 L (3.65-5.03) M/mm3 Hgb 6.3 L (10.1-14.3) gm/dl Hct 20.1 L (30.3-42.9) % MCH 25 L (28-32) pg RDW 20.4 H (13.2-15.2) % Lymph % (Auto) 12.4 L (13.4-35.0) % Page % (Auto) 14.0 H (0.0-7.3) % Page # 1.3 H (0.0-0.8) K/mm3 Seg Neutrophils % 72.1 H (40.0-70.0) % Potassium (3.6-5.0) mmol/L Chloride (98-107) mmol/L Carbon Dioxide (22-30) mmol/L BUN (7-17) mg/dL Creatinine (0.7-1.2) mg/dL Glucose (65-100) mg/dL POC Glucose 209 H 126 H (70-105) 07/08/19 07/08/19 Range/Units 05:28 06:00 RBC (3.65-5.03) M/mm3 Hgb (10.1-14.3) gm/dl Hct (30.3-42.9) % MCH (28-32) pg RDW (13.2-15.2) % Lymph % (Auto) (13.4-35.0) % Page % (Auto) (0.0-7.3) % Page # (0.0-0.8) K/mm3 Seg Neutrophils % (40.0-70.0) % Potassium 3.4 L (3.6-5.0) mmol/L Chloride 90.4 L (98-107) mmol/L Carbon Dioxide 34 H (22-30) mmol/L BUN 27 H (7-17) mg/dL Creatinine 4.3 H (0.7-1.2) mg/dL Glucose 123 H (65-100) mg/dL POC Glucose 121 H (70-105) Diabetes panel 07/08/19 Range/Units 05:28 Sodium 139 (137-145) mmol/L Potassium 3.4 L (3.6-5.0) mmol/L Chloride 90.4 L (98-107) mmol/L Carbon Dioxide 34 H (22-30) mmol/L BUN 27 H (7-17) mg/dL Creatinine 4.3 H (0.7-1.2) mg/dL Glucose 123 H (65-100) mg/dL Calcium 8.8 (8.4-10.2) mg/dL Calcium panel 07/08/19 Range/Units 05:28 Calcium 8.8 (8.4-10.2) mg/dL Pituitary panel 07/08/19 Range/Units 05:28 Sodium 139 (137-145) mmol/L Potassium 3.4 L (3.6-5.0) mmol/L Chloride 90.4 L (98-107) mmol/L Carbon Dioxide 34 H (22-30) mmol/L BUN 27 H (7-17) mg/dL Creatinine 4.3 H (0.7-1.2) mg/dL Glucose 123 H (65-100) mg/dL Calcium 8.8 (8.4-10.2) mg/dL Adrenal panel 07/08/19 Range/Units 05:28 Sodium 139 (137-145) mmol/L Potassium 3.4 L (3.6-5.0) mmol/L Chloride 90.4 L (98-107) mmol/L Carbon Dioxide 34 H (22-30) mmol/L BUN 27 H (7-17) mg/dL Creatinine 4.3 H (0.7-1.2) mg/dL Glucose 123 H (65-100) mg/dL Calcium 8.8 (8.4-10.2) mg/dL - Imaging CT scan - abdomen: report reviewed, image reviewed CT scan - pelvis: report reviewed, image reviewed Assessment and Plan 59 yo F with 1. open sternal wound 2. abdominal wall fluid collection 3. intraabdominal fluid collection 4. anemia 5. ESRD on HD 6. AMS 7. recent peritonitis/abscess from PD catheter s/p removal 7. recent CABG with sternal wound dehiscence and infection Plan: 1. Recommend transfer to [facility] where patient underwent abdominal surgery 1 month ago for continuity of care. Fluid collections are likely related to recent surgery and intraabdominal infection. 2. abx per ID D/W Dr. Rivera
--- NOTE | 2019-07-08 11:59 | Progress Note ---
Assessment and Plan Recommend transfer to [facility] where pt underwent CABG 2 months ago for evaluation and management midsternal wound dehiscence per cardiothoracic surgery. D/w Dr. Rivera. General surgery recs noted regarding suspected abdominal abscess - Recommend transfer to [facility] where patient underwent abdominal surgery 1 month ago. Transfer to be initiated per Dr. Rivera. The patient has been seen in conjunction with Dr. Garcia who agrees with the assessment and plan of care. - Patient Problems (1) Altered mental status Current Visit: Yes Status: Acute Qualifiers: Altered mental status type: somnolence Qualified Code(s): R40.0 - Somnolence (2) Hypotension Current Visit: Yes Status: Acute (3) CAD (coronary artery disease) Current Visit: Yes Status: Chronic (4) History of coronary artery bypass graft Current Visit: Yes Status: Chronic (5) Sternal wound dehiscence Current Visit: Yes Status: Acute (6) Abdominal abscess Current Visit: Yes Status: Suspected (7) Anemia Current Visit: Yes Status: Acute (8) History of peritonitis Current Visit: Yes Status: Chronic (9) History of osteomyelitis Current Visit: Yes Status: Chronic Subjective Date of service: 07/08/19 Principal diagnosis: hypotension; s/p cabg; midsternal wound Interval history: pt resting in bed, lethargic. in SR on tele. open midsternal wound noted. Objective Last Vital Signs Temp 97.7 F 07/08/19 11:23 Pulse 71 07/08/19 11:23 Resp 20 07/08/19 11:23 BP 157/54 07/08/19 11:23 Pulse Ox 100 07/08/19 11:23 - Physical Examination General: Cachectic, Other (lethargic) HEENT: Positive: Normocephaly Neck: Positive: neck supple, Carotid Upstroke (normal). Negative: JVD/HJR, Bruit Cardiac: Positive: Reg Rate and Rhythm, S1/S2 Lungs: Positive: Decreased Breath Sounds Neuro: Positive: Grossly Intact Abdomen: Positive: Soft. Negative: Tender Skin: Positive: Other (open midsternal wound). Negative: Rash Extremities: Present: Other (pedal pulses 1-2+). Absent: edema - Labs and Meds CBC 07/07/19 07/08/19 Range/Units 15:48 05:28 WBC 11.0 9.4 (4.5-11.0) K/mm3 RBC 2.60 L 2.53 L (3.65-5.03) M/mm3 Hgb 6.3 L 6.3 L (10.1-14.3) gm/dl Hct 20.5 L 20.1 L (30.3-42.9) % Plt Count 262 223 (140-440) K/mm3 Lymph # 1.2 (1.2-5.4) K/mm3 Turner # 1.3 H (0.0-0.8) K/mm3 Eos # 0.0 (0.0-0.4) K/mm3 Baso # 0.1 (0.0-0.1) K/mm3 Comprehensive Metabolic Panel 07/08/19 Range/Units 05:28 Sodium 139 (137-145) mmol/L Potassium 3.4 L (3.6-5.0) mmol/L Chloride 90.4 L (98-107) mmol/L Carbon Dioxide 34 H (22-30) mmol/L BUN 27 H (7-17) mg/dL Creatinine 4.3 H (0.7-1.2) mg/dL Glucose 123 H (65-100) mg/dL Calcium 8.8 (8.4-10.2) mg/dL - Telemetry EKG Rhythm: Sinus Rhythm
[2019-07-08 12:03] LABS: Hepatitis B Surface Antigen Non-Reactive (Negative); Hepatitis C Virus Antibody Non-Reactive (NonReactive)
--- NOTE | 2019-07-08 13:47 | Progress Note ---
Assessment and Plan Cultures: Blood culture 07/06/2019 no growth so far Assessment: 59 y.o.femalewith history ESRD now on HD, CAD s/p CABG on 04/10/19 complicated with sternal wound drainage, dehiscence and sternal osteomyelitis s/p multiple washouts/debridements/and sternal wound vac changes, also recent PD associated peritonitis and abdominal wall abscess treated with vanco/Fortaz x 6 week course (end date 07/01/19) at [facility], [facility]2019 due to hypotension after HD and altered mental status: 1) Hypotension: resolved. Likely due to severe anemia +/- abdominal wall collection. No evidence of sepsis, no tachycardia, leukocytosis, fever. 2) Abdominal wall collection / possible abscess: New CT showed large 8.6 x 3.9 cm lower abdominal wall collection ? residual or worsening abdominal wall abscess from recent PD infection. 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 Had PD catheter removal S/P I&D 05/27/19. OR culture Burkholderia multivorans. 3) Recent sternal wound dehiscence and osteomyelitis: improved, no infection noted at this time; S/P Initial I&D on 05/17/19; operative cultures with P. aeruginosa, E. Faecalis (sens to amp and vanco),H. parainfluenzae and Veillonella parvula. S/P repeat I&D 05/20/19; OR culture grew Burkholderia cepacia S/P repeat sternal I&D 06/06/19. Sternal bone culture from 05/20/19 grew B. cepaciaS/P sternal reexploration 06/06/19. 4) Bilateral large pleural effusions: ?transudative. 5) ESRD: used to be on PD, now on HD through HD cath. Recommendations: continue renally adjusted IV meropenem to cover empirically for Burkholderia and Enterococcus. d/w Dr. Gautam, patient awaiting transfer to [facility] Tran Alexis MD, FACP [facility] C: [phone] O: [phone] F: [phone] Subjective Date of service: 07/08/19 Principal diagnosis: hypotension; s/p cabg; midsternal wound Interval history: No fever. Awaiting dialysis initiation. complains of abdominal pain. Objective - Exam Narrative Exam: Physical Exam: Constitutional: Alert, cooperative. No acute distress. Cachexia + Head, Ears, Nose: Normocephalic, atraumatic. External ears, nose normal Eyes: Conjunctivae/corneas clear. No icterus. No ptosis. Neck: Supple, no meningeal signs Oral: no thrush Cardiovascular: S1, S2 normal. Respiratory: AE decreased in bases GI: soft, mild tenderness, lower abdominal wall with lump, tender; bowel sounds normal. No peritoneal signs Musculoskeletal: sternal wound +, HD cath +. No pedal edema Skin: No rash or abscess Hem/Lymphatic: No palpable cervical or supraclavicular nodes. No lymphangitis Psych: Mood ok. Affect normal Neurological: Awake, alert, oriented. - Constitutional Vitals: Vital Signs Temp Pulse Resp BP Pulse Ox 97.7 F 71 20 157/54 100 07/08/19 11:23 07/08/19 11:23 07/08/19 11:23 07/08/19 11:23 07/08/19 12:34 Temperature -Last 24 Hours Temperature 97.7 F Temperature 98.6 F Temperature 98.3 F Temperature 98.6 F Temperature 97.8 F Temperature 97.9 F - Labs CBC & Chem 7: 07/08/19 05:28 07/08/19 05:28 Labs: Abnormal lab results 07/07/19 07/07/19 07/07/19 Range/Units 15:48 18:22 23:52 RBC 2.60 L (3.65-5.03) M/mm3 Hgb 6.3 L (10.1-14.3) gm/dl Hct 20.5 L (30.3-42.9) % MCH 24 L (28-32) pg RDW 20.3 H (13.2-15.2) % Lymph % (Auto) (13.4-35.0) % Kaufman % (Auto) (0.0-7.3) % Kaufman # (0.0-0.8) K/mm3 Seg Neutrophils % (40.0-70.0) % Potassium (3.6-5.0) mmol/L Chloride (98-107) mmol/L Carbon Dioxide (22-30) mmol/L BUN (7-17) mg/dL Creatinine (0.7-1.2) mg/dL Glucose (65-100) mg/dL POC Glucose 209 H 126 H (70-105) Crossmatch 07/08/19 07/08/19 07/08/19 Range/Units 05:28 05:28 06:00 RBC 2.53 L (3.65-5.03) M/mm3 Hgb 6.3 L (10.1-14.3) gm/dl Hct 20.1 L (30.3-42.9) % MCH 25 L (28-32) pg RDW 20.4 H (13.2-15.2) % Lymph % (Auto) 12.4 L (13.4-35.0) % Kaufman % (Auto) 14.0 H (0.0-7.3) % Kaufman # 1.3 H (0.0-0.8) K/mm3 Seg Neutrophils % 72.1 H (40.0-70.0) % Potassium 3.4 L (3.6-5.0) mmol/L Chloride 90.4 L (98-107) mmol/L Carbon Dioxide 34 H (22-30) mmol/L BUN 27 H (7-17) mg/dL Creatinine 4.3 H (0.7-1.2) mg/dL Glucose 123 H (65-100) mg/dL POC Glucose 121 H (70-105) Crossmatch 07/08/19 07/08/19 Range/Units 09:24 12:10 RBC (3.65-5.03) M/mm3 Hgb (10.1-14.3) gm/dl Hct (30.3-42.9) % MCH (28-32) pg RDW (13.2-15.2) % Lymph % (Auto) (13.4-35.0) % Kaufman % (Auto) (0.0-7.3) % Kaufman # (0.0-0.8) K/mm3 Seg Neutrophils % (40.0-70.0) % Potassium (3.6-5.0) mmol/L Chloride (98-107) mmol/L Carbon Dioxide (22-30) mmol/L BUN (7-17) mg/dL Creatinine (0.7-1.2) mg/dL Glucose (65-100) mg/dL POC Glucose 120 H (70-105) Crossmatch See Detail
--- NOTE | 2019-07-08 17:10 | Progress Note ---
Assessment and Plan - Patient Problems (1) Abdominal abscess Current Visit: Yes Status: Suspected Plan to address problem: Abdominal abscess Reviewed CT with concern for is 8.6 x 3.9 cm abdominal wall collection Plan for drainage (2) ESRD (end stage renal disease) Current Visit: Yes Status: Acute Plan to address problem: ESRD Continue hemodialysis (3) Anemia Current Visit: Yes Status: Acute Plan to address problem: Severe anemia Hemoglobin 6.3 g per DL secondary to inflammation and renal failure Plan for transfusion (4) Hypokalemia Current Visit: Yes Status: Acute Plan to address problem: Mild We'll adjust dialysate bath Subjective Principal diagnosis: hypotension; s/p cabg; midsternal wound Interval history: 59-year-old with CAD, A. fib renal disease, CABG admitted steno drainage. He since then osteomyelitis at [facility] status post multiple washout procedures. Abdominal wall abscess in the setting of the peritoneal dialysis catheter associated peritonitis admitted with abdominal wall collection Patient seen today to be plan to transfer back to [facility] We'll perform hemodialysis also required blood transfusion Objective - Vital Signs Vital signs: Vital Signs - 12hr 07/08/19 07/08/19 07/08/19 11:23 12:34 14:10 Temperature 97.7 F Pulse Rate 71 71 Respiratory 20 Rate Blood Pressure 157/54 178/71 O2 Sat by Pulse 100 100 Oximetry 07/08/19 07/08/19 07/08/19 14:15 14:30 14:45 Temperature 97.7 F Pulse Rate 70 70 70 Respiratory 20 Rate Blood Pressure 189/79 176/77 167/81 O2 Sat by Pulse Oximetry 07/08/19 07/08/19 07/08/19 14:55 15:00 15:10 Temperature 97.7 F 97.6 F Pulse Rate 70 68 67 Respiratory 20 20 Rate Blood Pressure 167/81 194/91 176/84 O2 Sat by Pulse Oximetry 07/08/19 07/08/19 07/08/19 15:15 15:30 15:45 Temperature Pulse Rate 67 66 71 Respiratory Rate Blood Pressure 176/84 205/93 161/77 O2 Sat by Pulse Oximetry 07/08/19 07/08/19 07/08/19 16:03 16:15 16:30 Temperature Pulse Rate 78 71 66 Respiratory Rate Blood Pressure 164/82 177/65 147/73 O2 Sat by Pulse Oximetry - General Appearance General appearance: chronically ill, frail EENT: ATNC, PERRL Neck: no JVD Respiratory: Present: Clear to Ascultation Cardiology: regular, S1S2 Gastrointestinal: tenderness, masses (abdominal wall mass), other Integumentary: no rash Neurologic: CN 3-12 intact Musculoskeletal: deferred Psychiatric: mood/affect appropriate - Lab 07/08/19 05:28 07/08/19 05:28 Most recent lab results Calcium 8.8 mg/dL (8.4-10.2) 07/08/19 05:28 - Imaging CT scan - abdomen: image reviewed (CAT scan with abdominal wall collection and bilateral effusions) Medications & Allergies - Medications Allergies/Adverse Reactions: Allergies No Known Allergies Allergy (Verified 11/11/17 20:46) Home Medications: Home Medications Medication Instructions Recorded Confirmed Last Taken Type Calcitriol [Rocaltrol] 0.5 mcg PO DAILY 07/07/19 07/07/19 Unknown History Calcium Acetate [Phoslo] 667 mg PO QDAY 07/07/19 07/07/19 Unknown History Clopidogrel [Plavix] 75 mg PO QDAY 07/07/19 07/07/19 Unknown History Folic Acid 1 mg PO QDAY 07/07/19 07/07/19 Unknown History Glimepiride [Amaryl] 4 mg PO QDAY 07/07/19 07/07/19 Unknown History NIFEdipine XL [Procardia Xl] 90 mg PO QDAY 07/07/19 07/07/19 Unknown History Omeprazole 40 mg PO QAC 07/07/19 07/07/19 Unknown History Sevelamer Carbonate [Renvela] 800 mg PO QDAY 07/07/19 07/07/19 Unknown History Active Medications: Generic Name Dose Route Start Last Admin Trade Name Freq PRN Reason Stop Dose Admin Acetaminophen 650 mg 07/07/19 00:24 Tylenol PO Q4H PRN Pain MILD(1-3)/Fever >100.5/PALUMBO Dextrose 50 ml 07/07/19 00:28 D50w (25gm) Syringe IV Q30MIN PRN Hypoglycemia Protocol Epoetin Roberto 10,000 unit 07/08/19 00:01 Procrit IV FRANKI PRN hemodialysis Meropenem 500 mg in 50 mls @ 50 mls/hr 07/07/19 13:00 12/08/19 16:15 Merrem/Ns 500 Mg/50 Ml IV 50 mls/hr Q24H KHALIDA Administration Sodium Chloride 500 mls @ 0 mls/hr 07/08/19 09:00 Nacl 0.9% 500 Ml IV 07/09/19 08:59 ONCE NR As Directed Sodium Chloride 100 mls @ 999 mls/hr 07/08/19 09:00 Nacl 0.9% IV FRANKI PRN Hypotension Ondansetron HCl 4 mg 07/07/19 00:24 Zofran IV Q8H PRN Nausea And Vomiting Sodium Chloride 10 ml 07/07/19 10:00 07/07/19 22:00 Sodium Chloride Flush Syringe 10 Ml IV 10 ml BID KHALIDA Administration Sodium Chloride 10 ml 07/07/19 00:24 Sodium Chloride Flush Syringe 10 Ml IV PRN PRN LINE FLUSH
[2019-07-08 18:10] VITALS: BP 176/85
--- NOTE | 2019-07-08 18:28 | Progress Note ---
Assessment and Plan This is a 59 YO F with AMS and hypotension after dialysis. PT is sleepy but will wake up and respond to questions appropriately. PT with wound infection s/p CABG 03/2019 Recommend: Agree with teleneuro , would do MRI Brain (w/o mayra, ESRD) to rule out any acute pathology, however I suspect she hsa been encephalopathic Hold on EEG for now but could revisit if she appears confused Labs reviewed and fairily unremarkable Will follow up on the MRI and make additional recommendations if needed Continue care for all medical and infectious issues as you are doing Subjective Date of service: 07/08/19 Principal diagnosis: hypotension; s/p cabg; midsternal wound Interval history: Pt's mentation seems to be improving, seen by teleneuro 07/06. Just finishing dialysis, AOx3 Objective - Vital Sign Vital Signs - 12hr 07/08/19 07/08/19 07/08/19 11:23 12:34 14:10 Temperature 97.7 F Pulse Rate 71 71 Respiratory 20 Rate Blood Pressure 157/54 178/71 O2 Sat by Pulse 100 100 Oximetry 07/08/19 07/08/19 07/08/19 14:15 14:30 14:45 Temperature 97.7 F Pulse Rate 70 70 70 Respiratory 20 Rate Blood Pressure 189/79 176/77 167/81 O2 Sat by Pulse Oximetry 07/08/19 07/08/19 07/08/19 14:55 15:00 15:10 Temperature 97.7 F 97.6 F Pulse Rate 70 68 67 Respiratory 20 20 Rate Blood Pressure 167/81 194/91 176/84 O2 Sat by Pulse Oximetry 07/08/19 07/08/19 07/08/19 15:15 15:30 15:45 Temperature Pulse Rate 67 66 71 Respiratory Rate Blood Pressure 176/84 205/93 161/77 O2 Sat by Pulse Oximetry 07/08/19 07/08/19 07/08/19 16:03 16:15 16:30 Temperature Pulse Rate 78 71 66 Respiratory Rate Blood Pressure 164/82 177/65 147/73 O2 Sat by Pulse Oximetry 07/08/19 07/08/19 07/08/19 16:45 17:00 17:15 Temperature Pulse Rate 67 66 64 Respiratory Rate Blood Pressure 157/80 170/63 154/72 O2 Sat by Pulse Oximetry 07/08/19 07/08/19 07/08/19 17:30 17:45 18:07 Temperature 97.6 F Pulse Rate 64 67 70 Respiratory 20 Rate Blood Pressure 150/75 162/74 176/85 O2 Sat by Pulse Oximetry - General Apperance Constitutional: comfortable - EENT EENT: mucous membranes moist - Respiratory Respiratory: lungs clear - Cardiovascular Cardiovascular: regular rate Extremities: no peripheral edema bilat - Gastrointestinal Gastrointestinal: normoactive bowel sounds - Integumentary Integumentary: normal - Neurologic Cranial nerve examination: PERRL, EOMI, V1/V2/V3 grossly intact, face symmetric, tongue midline Detailed motor examination: grossly full strength in - Laboratory Findings CBC and BMP: 07/08/19 05:28 07/08/19 05:28 Abnormal Lab Findings: Abnormal Labs 07/06/19 07/06/19 07/06/19 18:27 18:27 19:53 RBC 2.78 L Hgb 6.9 L Hct 22.2 L MCH 25 L RDW 20.6 H Lymph % (Auto) Hand % (Auto) 10.1 H Hand # 1.0 H Seg Neutrophils % 74.1 H PT INR APTT Thrombin Time Potassium Chloride 88.3 L Carbon Dioxide BUN Creatinine 3.0 H Glucose 61 L POC Glucose 157 H Crossmatch 07/06/19 07/06/19 07/07/19 21:16 21:56 08:45 RBC Hgb Hct MCH RDW Lymph % (Auto) Hand % (Auto) Hand # Seg Neutrophils % PT 19.0 H INR 1.62 H APTT 44.7 H Thrombin Time 20.2 H Potassium Chloride Carbon Dioxide BUN Creatinine Glucose POC Glucose 115 H 142 H Crossmatch 07/07/19 07/07/19 07/07/19 11:54 15:48 18:22 RBC 2.60 L Hgb 6.3 L Hct 20.5 L MCH 24 L RDW 20.3 H Lymph % (Auto) Hand % (Auto) Hand # Seg Neutrophils % PT INR APTT Thrombin Time Potassium Chloride Carbon Dioxide BUN Creatinine Glucose POC Glucose 150 H 209 H Crossmatch 07/07/19 07/08/19 07/08/19 23:52 05:28 05:28 RBC 2.53 L Hgb 6.3 L Hct 20.1 L MCH 25 L RDW 20.4 H Lymph % (Auto) 12.4 L Hand % (Auto) 14.0 H Hand # 1.3 H Seg Neutrophils % 72.1 H PT INR APTT Thrombin Time Potassium 3.4 L Chloride 90.4 L Carbon Dioxide 34 H BUN 27 H Creatinine 4.3 H Glucose 123 H POC Glucose 126 H Crossmatch 07/08/19 07/08/19 07/08/19 06:00 09:24 12:10 RBC Hgb Hct MCH RDW Lymph % (Auto) Hand % (Auto) Hand # Seg Neutrophils % PT INR APTT Thrombin Time Potassium Chloride Carbon Dioxide BUN Creatinine Glucose POC Glucose 121 H 120 H Crossmatch See Detail
--- NOTE | 2019-07-16 12:14 | Discharge Summary ---
DISPOSITION: [facility] under the care of Dr. Wilkerson, Cardiothoracic Surgeon. DISCHARGE DIAGNOSES: 1. Acute metabolic encephalopathy. 2. Chest wall abscess. 3. Acute on chronic blood loss anemia, status post 1 unit of packed red blood cells. 4. Status post blood transfusion 1 unit of packed red blood cells. 5. Pleural effusion. 6. Status post recent coronary artery bypass graft. 7. End-stage renal disease, on hemodialysis. 8. Type 2 diabetes mellitus. 9. Moderate malnutrition. 10. Hypotension. HOSPITAL COURSE: The patient is a 59-year-old woman with a history of end-stage renal disease, on hemodialysis; hypertension; type 2 diabetes mellitus; coronary artery disease, status post using BIMA at [facility] on 04/10/2019 and discharged to [facility] on 04/20/2019, but readmitted to [facility] on 05/16/2019 for sternal wound infection and was found to have sternal wound osteomyelitis, status post multiple washout and debridement at [facility]. The patient presented to [facility] Emergency Department due to hypertension and altered mental status at hemodialysis. EMS found her blood pressure was 78/34. The patient was treated with IV fluids and IV blood. Hypotension resolved. The patient's sternal wound needing more debridement after General Surgery and Cardiology evaluated and recommended the patient be transferred to [facility]. I called [facility] colleague and setup of the transfer and the patient left on 07/08/2019. The time of discharge was 35 minutes or above that. MEDICATIONS: Please see reconciliation. DIET: Cardiac and end-stage renal disease and time of discharge was 35 minutes. JOB# [id number] TRW/NTS
== END 2019-07-08 20:20 | disposition short-term general hospital (02) | DRG 70 ==
LOC: ED 16:46 → 4A 23:55 → IMCU 07-07 01:30 → 3A 07-07 18:28
PROVIDERS: ADMIT Internal Medicine; ATTEND Internal Medicine
PROC: 30233N1 Transfusion of Nonautologous Red Blood Cells into Peripheral Vein, Percutaneous Approach (ICD-10-PCS; principal; 2019-07-08)
PROC: 5A1D70Z Performance of Urinary Filtration, Intermittent, Less than 6 Hours Per Day (ICD-10-PCS; 2019-07-08)
DX: G93.41 Metabolic encephalopathy (principal); N18.6 End stage renal disease; E44.0 Moderate protein-calorie malnutrition; Z68.1 Body mass index [BMI] 19.9 or less, adult; L02.211 Cutaneous abscess of abdominal wall; I12.0 Hypertensive chronic kidney disease with stage 5 chronic kidney disease or end stage renal disease; I48.0 Paroxysmal atrial fibrillation; D63.1 Anemia in chronic kidney disease; I25.10 Atherosclerotic heart disease of native coronary artery without angina pectoris; E11.22 Type 2 diabetes mellitus with diabetic chronic kidney disease; Z99.2 Dependence on renal dialysis; Z95.5 Presence of coronary angioplasty implant and graft; Z95.1 Presence of aortocoronary bypass graft; Z79.84 Long term (current) use of oral hypoglycemic drugs
CPT/HCPCS: 36415; 70450; 70496; 70498; 71250; 74176; 80048; 80074; 82962; 85025; 85027; 85610; 85670; 85730; 86850; 86900; 86901; 86920; 87040; 93005; 93010; 94760; 96365; 96375; G0378; J2185; J2310; J2543; J3370; J7030; J7040; P9016; Q9967

== ENCOUNTER 2019-08-19 16:02 | Emergency (ER) | payer MEDICARE, OTHER ==
--- NOTE | 2019-08-19 19:30 | Event Note ---
ED Screening Note ED Screening Note: 59 [facility] pt [facility] presents to ED requesting blood transfusion per recommendation of the rehab facility. She reports that she feels fine and denies any symptoms only here because she was instructed to do so. Denies bleeding of any type. Plan repeat H/H This initial assessment/diagnostic orders/clinical plan/treatment(s) is/are subject to change based on patients health status, clinical progression and re- assessment by fellow clinical providers in the ED. Further treatment and workup at subsequent clinical providers discretion. Patient/guardian urged not to elope from the ED as their condition may be serious if not clinically assessed and managed. Initial orders include:
[2019-08-19 21:03] LABS: Basophils # (Auto) 0.1 K/mm3 (0.0-0.1); Basophils % (Auto) 1.8 % (0.0-1.8); Eosinophils # (Auto) 0.2 K/mm3 (0.0-0.4); Eosinophils % (Auto) 3.2 % (0.0-4.3); Hematocrit 24.4 % (30.3-42.9); Hemoglobin 8.2 gm/dl (10.1-14.3); Lymphocytes # (Auto) 1.5 K/mm3 (1.2-5.4); Lymphocytes % (Auto) 22.1 % (13.4-35.0); Mean Corpuscular HGB Conc 34 % (30-34); Mean Corpuscular Volume 87 fl (79-97); Monocytes # (Auto) 0.7 K/mm3 (0.0-0.8); Platelet Count 338 K/mm3 (140-440); Red Blood Count 2.82 M/mm3 (3.65-5.03); Red Cell Distribution Width 14.8 % (13.2-15.2)
[2019-08-19 21:22] VITALS: BP 143/56
--- NOTE | 2019-08-19 23:16 | Emergency Department Report ---
ED General Adult HPI - General Chief complaint: Recheck/Abnormal Lab/Rx Stated complaint: BLOOD TRANSFUSION Time Seen by Provider: 08/19/19 19:28 Source: patient, EMS Mode of arrival: Wheelchair Limitations: No Limitations - History of Present Illness Initial comments: Mrs. Knight is a 59 yo female with hx of ESRD on dialysis, CAD s/p CABG, HTN who presents to ED requesting blood transfusion from [facility]. She has been in her normal state of health. She has mild fatigue. No hematemesis or hematochezia. She has been a resident at the [facility] for 2- 1/2 weeks. She was advised by the nurse to come to the emergency department. -: unknown Severity scale (0 -10): 0 Consistency: constant Improves with: none Worsens with: none Associated Symptoms: other (fatigue) - Related Data Home Medications Medication Instructions Recorded Confirmed Last Taken Calcium Acetate [Phoslo] 667 mg PO QDAY 07/07/19 07/07/19 Unknown Clopidogrel [Plavix] 75 mg PO QDAY 07/07/19 07/07/19 Unknown Folic Acid 1 mg PO QDAY 07/07/19 07/07/19 Unknown Glimepiride [Amaryl] 4 mg PO QDAY 07/07/19 07/07/19 Unknown NIFEdipine XL [Procardia Xl] 90 mg PO QDAY 07/07/19 07/07/19 Unknown Omeprazole 40 mg PO QAC 07/07/19 07/07/19 Unknown Sevelamer Carbonate [Renvela] 800 mg PO QDAY 07/07/19 07/07/19 Unknown calcitrioL [Rocaltrol] 0.5 mcg PO DAILY 07/07/19 07/07/19 Unknown Allergies Allergy/AdvReac Type Severity Reaction Status Date / Time No Known Allergies Allergy Verified 11/11/17 20:46 ED Review of Systems ROS: Stated complaint: BLOOD TRANSFUSION Other details as noted in HPI Comment: All other systems reviewed and negative Respiratory: denies: cough Cardiovascular: denies: chest pain Gastrointestinal: denies: abdominal pain, nausea, vomiting ED Past Medical Hx - Past Medical History Previous Medical History?: Yes Hx Hypertension: Yes Hx Heart Attack/AMI: Yes Hx Diabetes: Yes Additional medical history: peritoneal dialysis, CAD. chronic kidney disease. afib. hyperlipidemia. GI hemorrhage. pulmonary edema. pleural effusion. difficulty walking - Surgical History Past Surgical History?: Yes Hx Coronary Stent: Yes Additional Surgical History: coranary artery bypass - Social History Smoking Status: Never Smoker Substance Use Type: None - Medications Home Medications: Home Medications Medication Instructions Recorded Confirmed Last Taken Type Calcium Acetate [Phoslo] 667 mg PO QDAY 07/07/19 07/07/19 Unknown History Clopidogrel [Plavix] 75 mg PO QDAY 07/07/19 07/07/19 Unknown History Folic Acid 1 mg PO QDAY 07/07/19 07/07/19 Unknown History Glimepiride [Amaryl] 4 mg PO QDAY 07/07/19 07/07/19 Unknown History NIFEdipine XL [Procardia Xl] 90 mg PO QDAY 07/07/19 07/07/19 Unknown History Omeprazole 40 mg PO QAC 07/07/19 07/07/19 Unknown History Sevelamer Carbonate [Renvela] 800 mg PO QDAY 07/07/19 07/07/19 Unknown History calcitrioL [Rocaltrol] 0.5 mcg PO DAILY 07/07/19 07/07/19 Unknown History ED Physical Exam - General Limitations: No Limitations General appearance: alert, in no apparent distress - Head Head exam: Present: atraumatic, normocephalic - Eye Eye exam: Present: normal appearance - ENT ENT exam: Present: mucous membranes moist - Neck Neck exam: Present: normal inspection, full ROM - Respiratory Respiratory exam: Present: normal lung sounds bilaterally. Absent: respiratory distress, wheezes, rales, rhonchi - Cardiovascular Cardiovascular Exam: Present: regular rate, normal rhythm, normal heart sounds. Absent: systolic murmur, diastolic murmur, rubs, gallop - GI/Abdominal GI/Abdominal exam: Present: soft, normal bowel sounds. Absent: distended, tenderness, guarding, rebound - Extremities Exam Extremities exam: Present: normal inspection - Neurological Exam Neurological exam: Present: alert, oriented X3 - Psychiatric Psychiatric exam: Present: normal affect, normal mood - Skin Skin exam: Present: warm, dry, intact, normal color. Absent: rash ED Course Vital Signs 08/19/19 08/19/19 19:28 21:20 Temperature 98.9 F 98.6 F Pulse Rate 86 86 Respiratory 16 19 Rate Blood Pressure 145/56 Blood Pressure 143/56 [Left] O2 Sat by Pulse 97 96 Oximetry ED Medical Decision Making - Lab Data Result diagrams: 08/19/19 20:40 - Medical Decision Making Mrs. Knight presents from rehabilitation facility for need of blood transfusion from labs obtained at [facility]. Our charge nurse has spoken with nursing staff at [facility]. We were unable to obtain a copy of the lab work which was obtained. In June Mrs. Sagastumes hemoglobin was 6 prior to discharge. Today her hemoglobin is 8. Considering she is at baseline health I do not feel the need for transfusion at this time. Critical care attestation.: If time is entered above; I have spent that time in minutes in the direct care of this critically ill patient, excluding procedure time. ED Disposition Clinical Impression: Anemia, ESRD (end stage renal disease) Disposition: TO HOME OR SELFCARE Is pt being admited?: No Does the pt Need Aspirin: No Condition: Stable Additional Instructions: Mrs. Sagastumes hemoglobin today is 8. Her hemoglobin in June was 6. She did not receive a transfusion today.
== END 2019-08-20 01:48 | disposition home or self-care (01) ==
LOC: ED 16:02
DX: D64.9 Anemia, unspecified (principal); E11.22 Type 2 diabetes mellitus with diabetic chronic kidney disease; I12.0 Hypertensive chronic kidney disease with stage 5 chronic kidney disease or end stage renal disease; N18.6 End stage renal disease; Z98.890 Other specified postprocedural states; Z79.899 Other long term (current) drug therapy
CPT/HCPCS: 36415; 82962; 85025